=== PATIENT | male | born 1960 ===

== ENCOUNTER 2018-06-14 06:08 | Inpatient (IN) | payer MEDICARE, OTHER ==
[2018-06-14 06:56] VITALS: BMI 24.7
[2018-06-14] MEDS ORDERED: Propofol 10 mg/ml Inj (20 ML) ONE (07:37)
[2018-06-14] MEDS ORDERED: Lidocaine 4% (Laryng-O-Jet) Kit MM ONE (07:38)
[2018-06-14] MEDS ORDERED: Rocuronium 10 mg/ml (5 ml) ONE (07:38)
[2018-06-14] MEDS ORDERED: Succinylcholine Chloride 20 mg/ml Syr (5 ml) IV ONE (07:38)
[2018-06-14] MEDS ORDERED: Lidocaine 1% 5ml Abboject ONE (07:38)
[2018-06-14] MEDS ORDERED: Neostigmine 1:1000 (1 mg/ml) Inj ONE (07:38)
[2018-06-14] MEDS ORDERED: Midazolam 2 MG/2 ML VIAL ONE (07:38)
[2018-06-14 07:43] LABS: BASO % 0.7 % (0.0-2.0); EOS # 0.2 K/uL (0.0-0.7); EOS % 2.8 % (0.0-4.0); HEMOGLOBIN 14.3 g/dL (12.0-18.0); LYMPH # 2.5 K/uL (1.0-4.3); LYMPH % 38.1 % (20.0-40.0); MEAN CELL VOLUME 90.8 fl (80.0-94.0); MEAN CORPUSCULAR HEMOGLOBIN 30.9 pg (27.0-31.0); MEAN PLATELET VOLUME 9.8 fl (7.2-11.7); MONO # 0.4 K/uL (0.0-0.8); MONO % 6.9 % (0.0-10.0); NEUT # 3.3 K/uL (1.8-7.0); NEUT % 51.5 % (50.0-75.0); NRBC % 0.1 % (0.0-0.0); RBC 4.64 Mil/uL (4.40-5.90); RED CELL DISTRIBUTION WIDTH 13.6 % (11.5-14.5); WHITE BLOOD COUNT 6.4 K/uL (4.8-10.8)
[2018-06-14] MEDS ORDERED: Phenylephrine 10 mg/ml Inj ONE (07:44)
--- NOTE | 2018-06-14 08:13 | RAD ---
Date of service: 06/14/2018 HISTORY: pre-op COMPARISON: No prior. TECHNIQUE: Chest PA and lateral views FINDINGS: LUNGS: No active pulmonary disease. PLEURA: No significant pleural effusion identified. No pneumothorax apparent. CARDIOVASCULAR: No aortic atherosclerotic calcification present. Normal cardiac size. No pulmonary vascular congestion. OSSEOUS STRUCTURES: No significant abnormalities. VISUALIZED UPPER ABDOMEN: Normal. OTHER FINDINGS: None. IMPRESSION: No acute cardiopulmonary disease appreciated.
[2018-06-14] MEDS ORDERED: EPINEPHrine 1 mg/ml (1:1000) Inj ONE (09:37)
[2018-06-14] MEDS ORDERED: Sodium Chloride 0.9% 20 ML IV ONE (09:37)
[2018-06-14] MEDS ORDERED: Absorbable Gelatin Sponge Size 12-7 ONE (09:38)
[2018-06-14] MEDS ORDERED: Bupivacaine 0.5% Inj(30mL) ONE (09:38)
[2018-06-14] MEDS ORDERED: Thrombin Topical 5,000 Int Units Spray Kit ONE (09:38)
[2018-06-14] MEDS ORDERED: Vancomycin 1 g Inj ONE (10:20)
[2018-06-14] MEDS ORDERED: Sodium Chloride 0.9% 10 ML IV ONE (10:24)
[2018-06-14] MEDS ORDERED: ePHEDrine 50 mg/ml Inj ONE (10:24)
[2018-06-14] MEDS ORDERED: Morphine 1 mg/ml preservative-free Inj(Duramorph) ONE (10:27)
[2018-06-14] MEDS ORDERED: Desflurane Inhalation Anesthetic Liq (240 ml) ONE (12:59)
--- NOTE | 2018-06-14 13:48 | PCM.SURG1 ---
Surgeon's Initial Post Op Note - Surgeon's Notes Surgeon: Marie Perry MD Disc Pad Plate Filler: Star Virk PA-C; Piper Burger Type of Anesthesia: General Endo, Spinal Pre-Operative Diagnosis: Left hip OA Operative Findings: see op report Post-Operative Diagnosis: same as pre-op dx Operation Performed: L THR Specimen/Specimens Removed: left hip femoral head and soft tissue Estimated Blood Loss: EBL {In ML}: 300 Date of Surgery/Procedure: 06/14/18 Time of Surgery/Procedure: 11:30
[2018-06-14] MEDS ORDERED: DiphenhydrAMINE 50 mg/ml Inj IVP PRN (13:54)
[2018-06-14] MEDS ORDERED: HYDROmorphone 0.5 mg/0.5 ml ISec IVP PRN (16:36)
--- NOTE | 2018-06-14 17:44 | RAD ---
PROCEDURE: Left Hip X-ray Radiographs. HISTORY: s/p left total hip replacement COMPARISON: 05/10/2018. CT left hip TECHNIQUE: 2 views obtained. FINDINGS: BONES: Satisfactory position of recently placed left hip prosthesis. JOINTS: Stable osteoarthritic changes right hip. SOFT TISSUES: Expected postoperative findings in the soft tissues laterally to the left MORENITA. OTHER FINDINGS: Benítez catheter identified as an incidental finding. IMPRESSION: Satisfactory postoperative status.
[2018-06-14] MEDS: Lactated Ringer's 1,000 ML IV SCH (19:06)
[2018-06-14] MEDS: oxyCODONE 10 mg ER Tab (oxyCONTIN) PO SCH (22:12)
--- NOTE | 2018-06-14 23:20 | OP ---
PROCEDURE DATE: 06/14/2018 ATTENDING PHYSICIAN: Marie Perry MD. SIGNAL ENGINEER: Star Virk PA-C. PREOPERATIVE DIAGNOSIS: Left hip osteoarthritis. POSTOPERATIVE DIAGNOSIS: Left hip osteoarthritis. PROCEDURE: Left total hip replacement. IMPLANTS SIZE: Adrian, Trident size 56 mm cup, 10-degree liner, Adrian accolade II size 4 standard high-offset, 36 mm ceramic head with -2.5 neck length. ANESTHESIA TYPE: Spinal and general. ESTIMATED BLOOD LOSS: 200 mL. COMPLICATIONS: None. HISTORY: Patient with long standing history of left hip pain refractory of conservative management. X-ray had shown significant loss of joint space. After the failure of extensive conservative management, I had offered the patient the treatment option of total hip replacement. I reviewed the risk and benefits of the surgery with the patient in detail. The risks include, but not limited to bleeding, infection, nerve vessel damage, continuous pain, blood loss, instability, dislocation, iatrogenic fracture, blood clots, need for further surgery, and even . The patient fully understood the risks and benefits and opted to proceed. Patient underwent necessary preoperative medical workup and once medically cleared, was scheduled for the procedure. DESCRIPTION OF PROCEDURE: On the day of the surgery, the patient was admitted to preoperative holding area. A laterality sheet was completed, confirming correct operative site. An informed consent was signed from the patient and the correct operative hip was marked. Patient was brought into the operating room table. He underwent spinal anesthesia with general. Afterwards, the patient was placed on the operating room table in lateral decubitus position. All the bony prominences were well padded and an axillary roll was also placed. The hip was draped and prepped in the standard sterile manner. Timeout was completed, confirming correct operative site. We proceeded with Navigation assisted total hip replacement. Two pins were placed in the iliac crest to attach the antenna. Additional checkpoint was placed on the greater trochanter and on top of the acetabular roof. We utilized a standard postero-lateral approach. Using a #10 blade, a skin incision was made. The soft tissue dissection was taken down until the IT band fascia was identified incised along it's fibers. The short external rotators were exposed and excised with the capsule. It was tagged wit heavy sutures preserved for a later repair. Afterwards, the hip was dislocated and proposed neck cut was made. The Acetabulum was exposed using standard retractors. The remnant of torn labrum was excised along with pulvinar. The acetabulum was reamed using motorized reamers to the size that provide adequate depth and coverage. Next, size 56 cup was securely fixed in to the acetabular socket in appropriate version and inclination. A polyethylene liner was secured in to the acetabular cup. The femoral canal was exposed using standard retractors. Using the box chisel, lateral femoral neck was removed. Femoral canal was broached up to size 4 broach, which provide a secure fit and adequate fill of femoral canal. A high-offset trial neck was secured onto the broach. Different trial heads with variable neck lengths were secured onto the trial neck. The hip was reduced and taken through extensive range of motion to test stability, soft tissue tensioning and leg length. It was noted the 36 mm head with -2.5 neck length provide adequate stability, soft tissue tensioning and length. Next, size 4 stem with high-offset was securely fixed into the femoral canal. Then, a 36 mm ceramic head with -2.5 neck length was secured onto the neck of femoral stem. Hip was reduced and taken through final range of motion to assess for stability, soft tissue tensioning and leg length which was found to be satisfactory. Finally, the wound was copiously irrigated using pulse lavage solution. All loose bodies were removed. The short external rotators were repaired to greater trochanter using drill holes and heavy sutures. IT band fascia was tightly closed using heavy sutures and rest the wound was closed standard manner. Sterile dressing was applied. Patient was transferred to stretcher. Post-op instructions included posterior hip precautions. During this procedure, I was assisted by Star Virk, who assisted in positioning the patient on the operating room table as well as transferring the patient from the operating room table to the recovery room stretcher. In addition, Star Virk assisted me during the actual operative procedure by positioning, protecting critical neurovascular structures, exposure of the joint, and proper positioning of the implants. The presence of Star Virk as my operative assistant federal public defender was medically necessary to ensure the utmost safety of the patient in the pre, intra-, and post-operative periods. Marie Perry MD
[2018-06-15] MEDS: Lactated Ringer's 1,000 ML IV SCH ×3 (03:20→21:52)
[2018-06-15] MEDS: oxyCODONE 5 mg Immediate Release Tab PO PRN (03:54)
[2018-06-15 06:48] LABS: BASO % 0.3 % (0.0-2.0); EOS % 0.2 % (0.0-4.0); LYMPH # 1.9 K/uL (1.0-4.3); LYMPH % 17.9 % (20.0-40.0); MEAN CELL VOLUME 90.5 fl (80.0-94.0); MEAN CORPUSCULAR HGB CONC 34.3 g/dL (33.0-37.0); MEAN PLATELET VOLUME 9.9 fl (7.2-11.7); MONO # 0.6 K/uL (0.0-0.8); MONO % 5.5 % (0.0-10.0); NEUT % 76.1 % (50.0-75.0); NRBC % 0.1 % (0.0-0.0); RBC 3.69 Mil/uL (4.40-5.90); RED CELL DISTRIBUTION WIDTH 13.5 % (11.5-14.5); WHITE BLOOD COUNT 10.6 K/uL (4.8-10.8)
[2018-06-15 06:59] LABS: HEMOGLOBIN 11.4 g/dL (12.0-18.0)
[2018-06-15 07:09] LABS: BLOOD UREA NITROGEN 12 mg/dl (9-20); GFR NON-AFRICAN AMERICAN > 60
[2018-06-15] MEDS: oxyCODONE 10 mg ER Tab (oxyCONTIN) PO SCH ×2 (09:45→21:50)
[2018-06-15 13:29] LABS: URINE BILIRUBIN NEGATIVE (NEGATIVE); URINE BLOOD SMALL (NEGATIVE); URINE CLARITY CLEAR (Clear); URINE COLOR STRAW (YELLOW); URINE GLUCOSE (UA) 50 mg/dL (NEGATIVE); URINE LEUKOCYTE ESTERASE NEG Leu/uL (Negative); URINE PROTEIN NEGATIVE (NEGATIVE); URINE UROBILINOGEN 0.2-1.0 mg/dL (0.2-1.0)
--- NOTE | 2018-06-15 15:03 | RAD ---
Date of service: 06/15/2018 HISTORY: Fever COMPARISON: No prior. TECHNIQUE: 1 view obtained. FINDINGS: LUNGS: No active pulmonary disease. PLEURA: No significant pleural effusion identified, no pneumothorax apparent. CARDIOVASCULAR: No aortic atherosclerotic calcification present. Normal cardiac size. No pulmonary vascular congestion. OSSEOUS STRUCTURES: The glenoid fossa appear bilaterally shallow this could in part be positional. Bilateral glenohumeral joint arthrosis noted. VISUALIZED UPPER ABDOMEN: Normal. OTHER FINDINGS: None. IMPRESSION: No consolidation seen. No acute cardiopulmonary pathology appreciated. Other findings as above.
[2018-06-16] MEDS: Lactated Ringer's 1,000 ML IV SCH ×4 (02:23→21:20)
--- NOTE | 2018-06-16 02:42 | CP.PCM.HP ---
History of Present Illness - History of Present Illness History of Present Illness: CC: Left hip pain. HPI: 57 y/o male with a PMH of neuropathy and back pain presented to [facility] for a left total hip replacement with Dr. Perry. As per the pt, he was having worsening pain and neuropathy to the left hip, with associated weakness. He has tried conservative measures in the past, with no relief. PMH: Asthma, Renal Stones, Back pain, Neuropathy, Anxiety. PSH: Right knee arthroscopy. Allergies: Ciprofloxacin, Lactase, latex. Subjective Review of Systems: Reviewed and no additional remarkable complaints except pain to the left hip operative site. Objective Appears: Anxious, Non-toxic, No Acute Distress. Head Exam: NORMAL INSPECTION, normocephalic. Eye Exam: Normal eye inspection, EOMI, PERRLA. Respiratory Exam: NORMAL BREATHING PATTERN, breath sounds clear bilaterally. Cardiovascular Exam: +S1, +S2. RRR. GI & Abdominal Exam: Soft, non-tender, non-distended. Neurological Exam: Alert, Awake, Oriented x3. Psychiatric exam: Normal mood. Calm and cooperative. Musculoskeletal Exam: Pain and tenderness to the left hip postoperatively, Dressing on left hip is c/d/i. Skin Exam: Normal color, warm, dry. Assessment/Impression/Plan: 1.) Left total hip replacement -Left THR done by Dr. Perry. -ASA 325 mg BID post-operatively, as ordered by orthopedics. -Post-op fever noted; tylenol ordered. Consider empiric post-op antibiotics if fever persists. -Procalcitonin ordered. -Monitor for additional s/s infection. -Ensure adequate urine output, as pt has experienced problems voiding post-op in the past. Currently has atpia catheter in place. -PT eval and treat. -Continue current treatment. Present on Admission - Present on Admission Any Indicators Present on Admission: No Past Patient History - Past Medical History & Family History Past Medical History?: Yes - Past Social History Smoking Status: Former Smoker - CARDIAC Hx Cardiac Disorders: No - PULMONARY Hx Respiratory Disorders: Yes Hx Asthma: Yes - NEUROLOGICAL Hx Neurological Disorder: No - HEENT Hx HEENT Problems: Yes Other/Comment: TROUBLE WITH NIGHT VISION - RENAL Hx Chronic Kidney Disease: Yes Other/Comment: RECURRING KIDNEY STONES - ENDOCRINE/METABOLIC Hx Endocrine Disorders: No - HEMATOLOGICAL/ONCOLOGICAL Hx Blood Disorders: No Hx Anemia: No Hx Blood Transfusions: No - INTEGUMENTARY Hx Dermatological Problems: No - MUSCULOSKELETAL/RHEUMATOLOGICAL Hx Musculoskeletal Disorders: Yes Hx Back Pain: Yes (DUE TO LEFT HIP PAIN) Hx Degenerative Joint Disease: Yes Hx Falls: No Hx Osteoarthritis: Yes Other/Comment: TINGLING SENSATION ON THE LEFT LEG DUE TO HIP PROBLEM - GASTROINTESTINAL Hx Gastrointestinal Disorders: No - GENITOURINARY/GYNECOLOGICAL Hx Genitourinary Disorders: No - PSYCHIATRIC Hx Emotional Abuse: No Hx Physical Abuse: No - SURGICAL HISTORY Hx Surgeries: Yes Other/Comment: RIGHT KNEE ARTHROSCOPY-1994 - ANESTHESIA Hx Anesthesia: Yes Hx Anesthesia Reactions: No Hx Malignant Hyperthermia: No Has any member of the family had a problem w/ anesthesia?: No Meds Allergies/Adverse Reactions: Allergies Allergy/AdvReac Type Severity Reaction Status Date / Time ciprofloxacin [From Cipro] Allergy RASH Verified 05/27/18 15:53 lactase [From Dairy Aid] Allergy DIARRHEA Verified 05/27/18 15:54 latex Allergy RASH Verified 05/27/18 15:53 Results - Vital Signs Recent Vital Signs: Last Vital Signs Temp 98.7 F 06/15/18 23:52 Pulse 98 H 06/15/18 23:52 Resp 18 06/15/18 23:52 BP 110/71 06/15/18 23:52 Pulse Ox 98 06/15/18 23:52 - Labs Result Diagrams: 06/15/18 05:30 06/15/18 05:30 Labs: Laboratory Results - last 24 hr 06/15/18 06/15/18 06/15/18 05:30 05:30 13:07 WBC 10.6 D RBC 3.69 L Hgb 11.4 L D Hct 33.4 L MCV 90.5 MCH 31.0 MCHC 34.3 RDW 13.5 Plt Count 174 MPV 9.9 Neut % (Auto) 76.1 H Lymph % (Auto) 17.9 L [place] % (Auto) 5.5 Eos % (Auto) 0.2 Baso % (Auto) 0.3 Neut # (Auto) 8.0 H Lymph # (Auto) 1.9 [place] # (Auto) 0.6 Eos # (Auto) 0.0 Baso # (Auto) 0.0 Sodium 133 Potassium 4.0 Chloride 101 Carbon Dioxide 24 Anion Gap 12 BUN 12 Creatinine 0.8 Est GFR ( Amer) > 60 Est GFR (Non-Af Amer) > 60 Random Glucose 110 Calcium 9.0 Urine Color Straw Urine Clarity Clear Urine pH 7.0 Ur Specific [place] < 1.005 Urine Protein Negative Urine Glucose (UA) 50 Urine Ketones Negative Urine Blood Small Urine Nitrate Negative Urine Bilirubin Negative Urine Urobilinogen 0.2-1.0 Ur Leukocyte Esterase Neg Urine RBC (Auto) 1 Urine Microscopic WBC 2 Assessment & Plan (1) Status post total hip replacement, left Status: Acute
[2018-06-16 06:02] LABS: BASO % 0.4 % (0.0-2.0); EOS % 0.2 % (0.0-4.0); LYMPH # 1.3 K/uL (1.0-4.3); LYMPH % 14.4 % (20.0-40.0); MEAN CELL VOLUME 90.8 fl (80.0-94.0); MEAN CORPUSCULAR HEMOGLOBIN 30.5 pg (27.0-31.0); MEAN CORPUSCULAR HGB CONC 33.6 g/dL (33.0-37.0); MEAN PLATELET VOLUME 9.7 fl (7.2-11.7); MONO # 0.6 K/uL (0.0-0.8); MONO % 6.6 % (0.0-10.0); NEUT # 6.8 K/uL (1.8-7.0); NEUT % 78.4 % (50.0-75.0); RBC 2.96 Mil/uL (4.40-5.90); RED CELL DISTRIBUTION WIDTH 13.4 % (11.5-14.5); WHITE BLOOD COUNT 8.7 K/uL (4.8-10.8)
[2018-06-16 06:24] LABS: BLOOD UREA NITROGEN 8 mg/dl (9-20); CALCIUM 8.7 mg/dL (8.4-10.2); GFR NON-AFRICAN AMERICAN > 60
[2018-06-16] MEDS: oxyCODONE 10 mg ER Tab (oxyCONTIN) PO SCH ×2 (08:26→21:15)
--- NOTE | 2018-06-16 11:13 | CP.PCM.PN ---
Subjective - Date & Time of Evaluation Date of Evaluation: 06/16/18 Time of Evaluation: 11:11 - Subjective Subjective: Patient seen and examined at bedside comfortable. Pain well controlled. No acute events overnight. Tolerating PT well. Denies CP/SOB/fever/dizziness. Objective - Vital Signs/Intake and Output Vital Signs (last 24 hours): Temp Pulse Resp BP Pulse Ox 98.7 F 99 H 20 100/56 L 96 06/16/18 08:20 06/16/18 07:37 06/16/18 07:37 06/16/18 07:37 06/16/18 07:37 Intake and Output: 06/16/18 06/16/18 06:59 18:59 Intake Total 1440 Balance 1440 - Medications Medications: Current Medications Acetaminophen (Tylenol 325mg Tab) 325 mg PO Q4 PRN PRN Reason: pain1-3or fever Aspirin (Aspirin) 325 mg PO BID [facility] Last Admin: 06/16/18 08:26 Dose: 325 mg Celecoxib (Celebrex) 100 mg PO Q12 [facility] Last Admin: 06/16/18 08:22 Dose: 100 mg Diphenhydramine HCl (Benadryl) 50 mg IVP Q6 PRN PRN Reason: Itching / Pruritus Docusate Sodium (Colace) 100 mg PO TID [facility] Last Admin: 06/16/18 08:21 Dose: 100 mg Famotidine (Pepcid) 20 mg PO BID [facility] Last Admin: 06/16/18 08:21 Dose: 20 mg Lactated Ringer's (Lactated Ringer's) 1,000 mls @ 100 mls/hr IV .Q10H [facility] Last Admin: 06/16/18 08:21 Dose: 100 mls/hr Ondansetron HCl (Zofran Inj) 4 mg IVP Q6 PRN PRN Reason: Nausea/Vomiting Last Admin: 06/14/18 16:00 Dose: 4 mg Oxycodone HCl (Oxycodone Immediate Release Tab) 5 mg PO Q4 PRN PRN Reason: pain4-7 Last Admin: 06/15/18 03:54 Dose: 5 mg Oxycodone HCl (Oxycontin Extended Release Tab) 10 mg PO Q12 [facility] Stop: 06/28/18 21:01 Last Admin: 06/16/18 08:26 Dose: 10 mg Temazepam (Restoril) 30 mg PO HS [facility] Last Admin: 06/15/18 21:51 Dose: 30 mg Tramadol HCl (Ultram) 50 mg PO Q4 PRN PRN Reason: pain8-10 - Labs Labs: 06/16/18 05:55 06/16/18 05:55 - Extremities Exam Additional comments: L hip: Dressings CDI mild swelling Incision CDI with boubacar sensation intact SP/DP/TN motor intact EHL/FHL/TA/G pedal pulse intact calves soft NT Assessment and Plan (1) Status post total hip replacement, left Assessment & Plan: POD#2 s/p L MORENITA -posterior hip precautions -hip abd pillow -dressings changed -PT/OT -DVT ppx -orthopedically stable -d/c planning -d/w Dr. Perry who agrees with above Status: Acute
[2018-06-17] MEDS: Lactated Ringer's 1,000 ML IV SCH (06:08)
[2018-06-17 06:11] LABS: BASO % 0.3 % (0.0-2.0); EOS # 0.1 K/uL (0.0-0.7); EOS % 1.7 % (0.0-4.0); HEMOGLOBIN 8.7 g/dL (12.0-18.0); LYMPH # 1.8 K/uL (1.0-4.3); LYMPH % 22.2 % (20.0-40.0); MEAN CORPUSCULAR HEMOGLOBIN 30.7 pg (27.0-31.0); MEAN CORPUSCULAR HGB CONC 33.3 g/dL (33.0-37.0); MEAN PLATELET VOLUME 9.6 fl (7.2-11.7); MONO # 0.7 K/uL (0.0-0.8); MONO % 8.1 % (0.0-10.0); NEUT # 5.6 K/uL (1.8-7.0); NEUT % 67.7 % (50.0-75.0); RBC 2.82 Mil/uL (4.40-5.90); WHITE BLOOD COUNT 8.3 K/uL (4.8-10.8)
[2018-06-17] MEDS: oxyCODONE 5 mg Immediate Release Tab PO PRN (06:23)
[2018-06-17 06:39] LABS: BLOOD UREA NITROGEN 10 mg/dl (9-20); CALCIUM 8.6 mg/dL (8.4-10.2); GFR NON-AFRICAN AMERICAN > 60
[2018-06-17 07:39] VITALS: BP 98/62; PULSE 84; RESP 20; TEMP 98.5; O2SAT 97
--- NOTE | 2018-06-17 08:34 | CP.PCM.PN ---
Subjective - Date & Time of Evaluation Date of Evaluation: 06/17/18 Time of Evaluation: 08:32 - Subjective Subjective: Patient states he has a lot of pain in hip and gluteal area. Denies CP/SOb/dizziness. Denies numbness/tingling. Denies nv. Still with some burningn with urination, patient advised u/a was negative and likely from tapia and should improve Objective - Vital Signs/Intake and Output Vital Signs (last 24 hours): Temp Pulse Resp BP Pulse Ox 98.5 F 84 20 98/62 L 97 06/17/18 07:39 06/17/18 07:39 06/17/18 07:39 06/17/18 07:39 06/17/18 07:39 Intake and Output: 06/17/18 06/17/18 06:59 18:59 Intake Total 740 Balance 740 - Medications Medications: Current Medications Acetaminophen (Tylenol 325mg Tab) 325 mg PO Q4 PRN PRN Reason: pain1-3or fever Aspirin (Aspirin) 325 mg PO BID [facility] Last Admin: 06/16/18 16:09 Dose: 325 mg Celecoxib (Celebrex) 100 mg PO Q12 [facility] Last Admin: 06/16/18 21:16 Dose: Not Given Diphenhydramine HCl (Benadryl) 50 mg IVP Q6 PRN PRN Reason: Itching / Pruritus Docusate Sodium (Colace) 100 mg PO TID [facility] Last Admin: 06/16/18 16:06 Dose: 100 mg Famotidine (Pepcid) 20 mg PO BID [facility] Last Admin: 06/16/18 16:06 Dose: 20 mg Lactated Ringer's (Lactated Ringer's) 1,000 mls @ 100 mls/hr IV .Q10H [facility] Last Admin: 06/17/18 06:08 Dose: Not Given Ondansetron HCl (Zofran Inj) 4 mg IVP Q6 PRN PRN Reason: Nausea/Vomiting Last Admin: 06/14/18 16:00 Dose: 4 mg Oxycodone HCl (Oxycodone Immediate Release Tab) 5 mg PO Q4 PRN PRN Reason: pain4-7 Last Admin: 06/17/18 06:23 Dose: 5 mg Oxycodone HCl (Oxycontin Extended Release Tab) 10 mg PO Q12 [facility] Stop: 06/28/18 21:01 Last Admin: 06/16/18 21:15 Dose: 10 mg Temazepam (Restoril) 30 mg PO HS [facility] Last Admin: 06/16/18 21:16 Dose: 30 mg Tramadol HCl (Ultram) 50 mg PO Q4 PRN PRN Reason: pain8-10 - Labs Labs: 06/17/18 05:20 06/17/18 05:20 - Extremities Exam Additional comments: Left hip: dressing changed. Incision intact, mod sang drainage, no erythema. Thigh soft. +ROM ankle/toes, sensation intact +DP/PT pulses calves soft NT neg homans Assessment and Plan (1) Primary osteoarthritis of left hip Assessment & Plan: POD#3 s/p left total hip replacement PT/OT VTE proph encourage OOB for transfer to TCU today ortho stable d/w Dr. Perry, agrees with above Status: Acute (2) Acute blood loss anemia Assessment & Plan: monitor Status: Acute
[2018-06-17] MEDS: oxyCODONE 10 mg ER Tab (oxyCONTIN) PO SCH (08:36)
--- NOTE | 2018-06-17 13:29 | CP.PCM.PN ---
Subjective - Date & Time of Evaluation Date of Evaluation: 06/16/18 Time of Evaluation: 11:00 - Subjective Subjective: patient seen and examined at bedside. Interim events noted No complaints offered at this time besides burning on urination, UA negative pain controlled denies cp/sob/fever/chills. available diagnostic data reviewed Review of Systems All systems: reviewed and no additional remarkable complaints except mentioned above Objective Vital Signs Stable - Constitutional Appears: Non-toxic, No Acute Distress Head Exam: NORMAL INSPECTION Eye Exam: Normal appearance Respiratory Exam: NORMAL BREATHING PATTERN Cardiovascular Exam: +S1, +S2 GI & Abdominal Exam: Soft Neurological Exam: Alert, Awake Psychiatric exam: Normal Affect, Normal Mood Skin Exam: Normal Color, Warm Assessment and Plan monitor vitals monitor labs Cont meds Cont tx consultants appreciated input dispo planning rest of plan as ordered Objective - Vital Signs/Intake and Output Vital Signs (last 24 hours): Temp Pulse Resp BP Pulse Ox 98.5 F 84 20 98/62 L 97 06/17/18 07:39 06/17/18 07:39 06/17/18 07:39 06/17/18 07:39 06/17/18 07:39 Intake and Output: 06/17/18 06/17/18 06:59 18:59 Intake Total 740 Balance 740 - Medications Medications: Current Medications Acetaminophen (Tylenol 325mg Tab) 325 mg PO Q4 PRN PRN Reason: pain1-3or fever Aspirin (Aspirin) 325 mg PO BID [facility] Last Admin: 06/17/18 08:37 Dose: 325 mg Celecoxib (Celebrex) 100 mg PO Q12 [facility] Last Admin: 06/17/18 08:37 Dose: 100 mg Diphenhydramine HCl (Benadryl) 50 mg IVP Q6 PRN PRN Reason: Itching / Pruritus Docusate Sodium (Colace) 100 mg PO TID [facility] Last Admin: 06/17/18 08:36 Dose: 100 mg Famotidine (Pepcid) 20 mg PO BID [facility] Last Admin: 06/17/18 08:37 Dose: 20 mg Lactated Ringer's (Lactated Ringer's) 1,000 mls @ 100 mls/hr IV .Q10H [facility] Last Admin: 06/17/18 06:08 Dose: Not Given Ondansetron HCl (Zofran Inj) 4 mg IVP Q6 PRN PRN Reason: Nausea/Vomiting Last Admin: 06/14/18 16:00 Dose: 4 mg Oxycodone HCl (Oxycodone Immediate Release Tab) 5 mg PO Q4 PRN PRN Reason: pain4-7 Last Admin: 06/17/18 06:23 Dose: 5 mg Oxycodone HCl (Oxycontin Extended Release Tab) 10 mg PO Q12 [facility] Stop: 06/28/18 21:01 Last Admin: 06/17/18 08:36 Dose: 10 mg Phenazopyridine HCl (Pyridium) 100 mg PO TID [facility] Stop: 06/18/18 23:00 Last Admin: 06/17/18 12:19 Dose: 100 mg Temazepam (Restoril) 30 mg PO HS [facility] Last Admin: 06/16/18 21:16 Dose: 30 mg Tramadol HCl (Ultram) 50 mg PO Q4 PRN PRN Reason: pain8-10 - Labs Labs: 06/17/18 05:20 06/17/18 05:20 Assessment and Plan (1) Status post total hip replacement, left Status: Acute
--- NOTE | 2018-06-17 13:31 | CP.PCM.DIS ---
Provider - Provider Date of Admission: 06/14/18 13:48 Attending physician: Christiano Payne MD Primary care physician: Homar Albert MD Consults: 06/16/18 11:03 Orthopedic Consult Routine Comment: Consulting Provider: Marie Perry Consulting Physician: Marie Perry Reason for Consult: postop ortho mgmt Time Spent in preparation of Discharge (in minutes): 30 Diagnosis - Discharge Diagnosis (1) Status post total hip replacement, left Status: Acute Hospital Course - Lab Results Lab Results: Micro Results 06/15/18 10:20 Blood Blood Culture - Preliminary NO GROWTH AFTER 48 HOURS 06/15/18 13:07 Urine,Benítez Urine Culture - Final No Growth (<1,000 CFU/ML) Most Recent Lab Values WBC 8.3 K/uL (4.8-10.8) 06/17/18 05:20 RBC 2.82 Mil/uL (4.40-5.90) L 06/17/18 05:20 Hgb 8.7 g/dL (12.0-18.0) L 06/17/18 05:20 Hct 26.0 % (35.0-51.0) L 06/17/18 05:20 MCV 92.0 fl (80.0-94.0) 06/17/18 05:20 MCH 30.7 pg (27.0-31.0) 06/17/18 05:20 MCHC 33.3 g/dL (33.0-37.0) 06/17/18 05:20 RDW 14.0 % (11.5-14.5) 06/17/18 05:20 Plt Count 133 K/uL (130-400) 06/17/18 05:20 MPV 9.6 fl (7.2-11.7) 06/17/18 05:20 Neut % (Auto) 67.7 % (50.0-75.0) 06/17/18 05:20 Lymph % (Auto) 22.2 % (20.0-40.0) 06/17/18 05:20 [place] % (Auto) 8.1 % (0.0-10.0) 06/17/18 05:20 Eos % (Auto) 1.7 % (0.0-4.0) 06/17/18 05:20 Baso % (Auto) 0.3 % (0.0-2.0) 06/17/18 05:20 Neut # (Auto) 5.6 K/uL (1.8-7.0) 06/17/18 05:20 Lymph # (Auto) 1.8 K/uL (1.0-4.3) 06/17/18 05:20 [place] # (Auto) 0.7 K/uL (0.0-0.8) 06/17/18 05:20 Eos # (Auto) 0.1 K/uL (0.0-0.7) 06/17/18 05:20 Baso # (Auto) 0.0 K/uL (0.0-0.2) 06/17/18 05:20 Sodium 139 mmol/l (132-148) 06/17/18 05:20 Potassium 3.8 MMOL/L (3.6-5.0) 06/17/18 05:20 Chloride 105 mmol/L (98-107) 06/17/18 05:20 Carbon Dioxide 28 mmol/L (22-30) 06/17/18 05:20 Anion Gap 10 (10-20) 06/17/18 05:20 BUN 10 mg/dl (9-20) 06/17/18 05:20 Creatinine 0.7 mg/dl (0.8-1.5) L 06/17/18 05:20 Est GFR ( Amer) > 60 06/17/18 05:20 Est GFR (Non-Af Amer) > 60 06/17/18 05:20 Random Glucose 100 mg/dL (75-110) 06/17/18 05:20 Calcium 8.6 mg/dL (8.4-10.2) 06/17/18 05:20 Procalcitonin 0.38 NG/ML (0.19-0.49) 06/16/18 05:55 Urine Color Straw (YELLOW) 06/15/18 13:07 Urine Clarity Clear (Clear) 06/15/18 13:07 Urine pH 7.0 (5.0-8.0) 06/15/18 13:07 Ur Specific [place] < 1.005 (1.003-1.030) 06/15/18 13:07 Urine Protein Negative mg/dL (NEGATIVE) 06/15/18 13:07 Urine Glucose (UA) 50 mg/dL (NEGATIVE) 06/15/18 13:07 Urine Ketones Negative mg/dL (NEGATIVE) 06/15/18 13:07 Urine Blood Small (NEGATIVE) 06/15/18 13:07 Urine Nitrate Negative (NEGATIVE) 06/15/18 13:07 Urine Bilirubin Negative (NEGATIVE) 06/15/18 13:07 Urine Urobilinogen 0.2-1.0 mg/dL (0.2-1.0) 06/15/18 13:07 Ur Leukocyte Esterase Neg [place]/uL (Negative) 06/15/18 13:07 Urine RBC (Auto) 1 /hpf (0-3) 06/15/18 13:07 Urine Microscopic WBC 2 /hpf (0-5) 06/15/18 13:07 Blood Type O POSITIVE 06/14/18 07:00 Blood Type Confirm O POSITIVE 06/14/18 08:00 Antibody Screen Negative 06/14/18 07:00 Crossmatch See Detail 06/14/18 07:00 BBK History Checked No verified bt 06/14/18 07:00 - Hospital Course Hospital Course: 57 y/o male with a PMH of neuropathy and back pain presented to [facility] for a left total hip replacement with Dr. Perry. As per the pt, he was having worsening pain and neuropathy to the left hip, with associated weakness. He has tried conservative measures in the past, with no relief. Patient had post op fever though with negative procalcitonin and asymptomatic. Patient fever improved. Pain well controlled. Patient to be discharged to TCU for further rehabilitation. Discharge Exam - Head Exam Head Exam: NORMAL INSPECTION - Eye Exam Eye Exam: Normal appearance - Respiratory Exam Respiratory Exam: NORMAL BREATHING PATTERN - Cardiovascular Exam Cardiovascular Exam: +S1, +S2 - Neurological Exam Neurological exam: Alert - Psychiatric Exam Psychiatric exam: Normal Affect, Normal Mood - Skin Skin Exam: Normal Color, Warm Discharge Plan - Follow Up Plan Condition: GOOD Disposition: REHAB FACILITY/REHAB UNIT Instructions: Total Hip Replacement, How to Wash Your Hands Properly Referrals: Homar Albert MD [Primary Care Provider] -
--- NOTE | 2018-06-18 00:23 | PQF ---
PROVIDER RESPONSE TEXT: Diagnosis: Urinary retention. Due to this diagnosis, the insertion of a tapia catheter was required p ost-operatively. REVIEWER QUERY TEXT: Clarification of Clinical Diagnostic Findings Physician?s Documentation Request This Form is Not a Permanent Document in the Medical Record Pt Name: BAILEY HARRIS MR #: [id number] Payor: MEDICARE PART A [id number] Adm Date: 06/14/2018 1:48:00 PM Reviewer: Guadalupe Cotto Ext. Query Date: Clarification of Clinical Diagnostic Findings [id number] By submitting this query, we are merely seeking further clarification of documentation to accurately reflect all conditions that you are monitoring, evaluating, treating or that extend the hospitalizati on or utilize additional resources of care. Please utilize your independent clinical judgment when ad dressing the question(s) below. Dear Doctor Tomas Garnica, The patient?s Clinical Indicators include: -- Please clarify if there is an associated diagnosis related to the insertion of the tapia catheter pos t-op Or: Disagree Or: Other explanation of clinical finding H and P includes: -Ensure adequate urine output, as pt has experienced problems voiding post-op in th e past.Currently has tapia catheter in place 06/15 Nurses note; 0400 patient noted with slightly distended bladder, bladder scan done have 415cc.-- order for catheter insertion. 0430 catheter inserted as ordered. Drained 500 cc jeremy colored urine, patient verbalized slightly re lieved. PLEASE DOCUMENT ANY ADDITIONAL DIAGNOSES AND/OR SPECIFICITY IN THE PROGRESS NOTES AND/OR DISCHARGE MCKEE MMARY. Clinically unable to determine/unknown Disagree with the above request Need to discuss Query created by: Guadalupe Cotto on 06/16/2018 1:29 PM Electronically signed by: Tomas Garnica APN 06/18/2018 12:19 AM
--- NOTE | 2018-06-18 00:23 | PQF ---
PROVIDER RESPONSE TEXT: The drop in hemoglobin and hematocrit is possibly secondary to blood loss during the total hip replac ement, although it is difficult to determine with certainty. Post-operative note states 300 ml blood loss. DX: Acute posthemorrhagic anemia. REVIEWER QUERY TEXT: Clarification of Clinical Diagnostic Findings Physician?s Documentation Request This Form is Not a Permanent Document in the Medical Record Pt Name: BAILEY HARRIS MR #: [id number] Payor: MEDICARE PART A [id number] Adm Date: 06/14/2018 1:48:00 PM Reviewer: Guadalupe Cotto Ext. Query Date: 06/16/2018 1:18:05 PM Clarification of Clinical Diagnostic Findings [id number] By submitting this query, we are merely seeking further clarification of documentation to accurately reflect all conditions that you are monitoring, evaluating, treating or that extend the hospitalizati on or utilize additional resources of care. Please utilize your independent clinical judgment when ad dressing the question(s) below. Dear Doctor Tomas Garnica, The patient?s Clinical Indicators include: --- Is there an associated diagnoses to go along with the shift in H/H: H/H: 14.3/42.1->11.4/33.4-> 9.0/2 6.8. 4/16: Op note: Lt. THR -Or: Disagree -Or: Other explanation of clinical finding PLEASE DOCUMENT ANY ADDITIONAL DIAGNOSES AND/OR SPECIFICITY IN THE PROGRESS NOTES AND/OR DISCHARGE MCKEE MMARY. Clinically unable to determine/unknown Disagree with the above request Need to discuss Query created by: Guadalupe Cotto on 06/16/2018 1:18 PM Electronically signed by: Tomas Garnica APN 06/18/2018 12:19 AM
== END 2018-06-17 14:01 | DRG 470 ==
LOC: H.OPSURG 06:08 → H.MEDSURG1 13:48
PROVIDERS: ADMIT Family Medicine; ATTEND Family Medicine
PROC: 0SRB04Z Replacement of Left Hip Joint with Ceramic on Polyethylene Synthetic Substitute, Open Approach (ICD-10-PCS; principal; 2018-06-14 09:30)
DX: M16.12 Unilateral primary osteoarthritis, left hip (principal); D62 Acute posthemorrhagic anemia; R50.82 Postprocedural fever; J45.909 Unspecified asthma, uncomplicated; N18.9 Chronic kidney disease, unspecified; Z87.442 Personal history of urinary calculi; Z87.891 Personal history of nicotine dependence; F41.9 Anxiety disorder, unspecified; G62.9 Polyneuropathy, unspecified; M19.90 Unspecified osteoarthritis, unspecified site; M54.9 Dorsalgia, unspecified; R33.8 Other retention of urine; N99.89 Other postprocedural complications and disorders of genitourinary system

== ENCOUNTER 2018-06-17 11:43 | Inpatient (IN) | payer OTHER ==
[2018-06-17] MEDS ORDERED: oxyCODONE 5 mg Immediate Release Tab PO PRN ×2 (13:57→14:14)
[2018-06-17] MEDS ORDERED: DiphenhydrAMINE 50 mg/ml Inj IVP PRN (14:13)
--- NOTE | 2018-06-17 16:09 | PCM.CPAPS ---
History of Present Illness - History of Present Illness History of Present Illness: 57 year old male admitted to TCU with diagnosis of L THR, with history of neuropathy,asthma, renal stones, back pain Review of Systems - Musculoskeletal Musculoskeletal: Abnormal Gait, Limited Range of Motion, Muscle Weakness Past Patient History - Past Medical History & Family History Past Medical History?: Yes - Past Social History Smoking Status: Former Smoker - CARDIAC Hx Cardiac Disorders: No - PULMONARY Hx Respiratory Disorders: Yes Hx Asthma: Yes - NEUROLOGICAL Hx Neurological Disorder: No - HEENT Hx HEENT Problems: Yes Other/Comment: TROUBLE WITH NIGHT VISION - RENAL Hx Chronic Kidney Disease: Yes Other/Comment: RECURRING KIDNEY STONES - ENDOCRINE/METABOLIC Hx Endocrine Disorders: No - HEMATOLOGICAL/ONCOLOGICAL Hx Blood Disorders: No Hx Anemia: No Hx Blood Transfusions: No - INTEGUMENTARY Hx Dermatological Problems: No - MUSCULOSKELETAL/RHEUMATOLOGICAL Hx Musculoskeletal Disorders: Yes Hx Back Pain: Yes (DUE TO LEFT HIP PAIN) Hx Degenerative Joint Disease: Yes Hx Falls: No Hx Osteoarthritis: Yes Other/Comment: TINGLING SENSATION ON THE LEFT LEG DUE TO HIP PROBLEM - GASTROINTESTINAL Hx Gastrointestinal Disorders: No - GENITOURINARY/GYNECOLOGICAL Hx Genitourinary Disorders: No - PSYCHIATRIC Hx Emotional Abuse: No Hx Physical Abuse: No - SURGICAL HISTORY Hx Surgeries: Yes Other/Comment: RIGHT KNEE ARTHROSCOPY-1994 - ANESTHESIA Hx Anesthesia: Yes Hx Anesthesia Reactions: No Hx Malignant Hyperthermia: No Meds Allergies/Adverse Reactions: Allergies Allergy/AdvReac Type Severity Reaction Status Date / Time ciprofloxacin [From Cipro] Allergy RASH Verified 06/17/18 13:35 lactase [From Dairy Aid] Allergy DIARRHEA Verified 06/17/18 13:35 latex Allergy RASH Verified 06/17/18 13:35 - Medications Medications: Current Medications Acetaminophen (Tylenol 325mg Tab) 650 mg PO Q4 PRN PRN Reason: Fever >100.4 F Acetaminophen (Tylenol 325mg Tab) 650 mg PO Q4 PRN PRN Reason: Pain, Mild (1-3) Aspirin (Aspirin) 325 mg PO BID [facility] Celecoxib (Celebrex) 100 mg PO Q12 [facility] Diphenhydramine HCl (Benadryl) 50 mg IVP Q6 PRN PRN Reason: Itching / Pruritus Docusate Sodium (Colace) 100 mg PO TID [facility] Famotidine (Pepcid) 20 mg PO BID [facility] Ondansetron HCl (Zofran Inj) 4 mg IVP Q6 PRN PRN Reason: Nausea/Vomiting Oxycodone HCl (Oxycontin Extended Release Tab) 10 mg PO Q12 [facility] Stop: 06/20/18 21:01 Oxycodone HCl (Oxycodone Immediate Release Tab) 5 mg PO Q4 PRN PRN Reason: Pain, severe (8-10) Phenazopyridine HCl (Pyridium) 100 mg PO TID [facility] Stop: 06/18/18 23:59 Temazepam (Restoril) 30 mg PO HS [facility] Tramadol HCl (Ultram) 50 mg PO Q4 PRN PRN Reason: Pain, moderate (4-7) Physical Exam - Constitutional Appears: Well - Head Exam Head Exam: ATRAUMATIC, NORMAL INSPECTION - Eye Exam Eye Exam: EOMI, Normal appearance, PERRL Pupil Exam: NORMAL ACCOMODATION - ENT Exam ENT Exam: Mucous Membranes Moist, Normal Exam - Neck Exam Neck exam: Positive for: Normal Inspection - Respiratory Exam Respiratory Exam: Clear to Auscultation Bilateral, NORMAL BREATHING PATTERN - Cardiovascular Exam Cardiovascular Exam: REGULAR RHYTHM - GI/Abdominal Exam GI & Abdominal Exam: Normal Bowel Sounds - Rectal Exam Rectal Exam: NORMAL INSPECTION - Exam External exam: NORMAL EXTERNAL EXAM - Extremities Exam Additional comments: left leg weakness muscle strength for 3/5 - Back Exam Back exam: NORMAL INSPECTION - Neurological Exam Neurological exam: Alert, CN II-XII Intact - Psychiatric Exam Psychiatric exam: Normal Affect, Normal Mood - Skin Skin Exam: Dry Assessment & Plan (1) Primary osteoarthritis of left hip Assessment and Plan: plan for physical, occupational therapy monitor skin and pain Status: Acute (2) Status post total hip replacement, left Status: Acute - Functional Status Prior to Admission: tish was independent Current Status: tish needs asistance in adls, transfers and gait Impairment Code: left hip replacement
[2018-06-17 19:17] LABS: SQUAMOUS EPITHIAL < 1 /hpf (0-5); URINE BACTERIA RARE (<OCC); URINE BILIRUBIN NEGATIVE (NEGATIVE); URINE BLOOD NEGATIVE (NEGATIVE); URINE CLARITY CLEAR (Clear); URINE COLOR AMBER (YELLOW); URINE GLUCOSE (UA) 150 mg/dL (NEGATIVE); URINE LEUKOCYTE ESTERASE NEG Leu/uL (Negative); URINE PROTEIN 30 mg/dL (NEGATIVE)
[2018-06-17] MEDS: oxyCODONE 10 mg ER Tab (oxyCONTIN) PO SCH (20:47)
[2018-06-18 05:48] LABS: HEMOGLOBIN 9.4 g/dL (12.0-18.0); MEAN CELL VOLUME 90.9 fl (80.0-94.0); MEAN CORPUSCULAR HEMOGLOBIN 30.7 pg (27.0-31.0); MEAN CORPUSCULAR HGB CONC 33.8 g/dL (33.0-37.0); RBC 3.05 Mil/uL (4.40-5.90); RED CELL DISTRIBUTION WIDTH 13.7 % (11.5-14.5); WHITE BLOOD COUNT 7.4 K/uL (4.8-10.8)
[2018-06-18 05:54] LABS: INR 1.1; PROTHROMBIN TIME 12.7 Seconds (9.8-13.1)
[2018-06-18 06:04] LABS: ALB/GLOB RATIO 1.2 (1.0-2.1); ALBUMIN 3.6 g/dL (3.5-5.0); ALT/SGPT 23 U/L (21-72); AST/SGOT 35 U/L (17-59); BLOOD UREA NITROGEN 11 mg/dl (9-20); GFR NON-AFRICAN AMERICAN > 60; PARTIAL THROMBOPLASTIN TIME 32.5 Seconds (25.6-37.1)
[2018-06-18] MEDS: oxyCODONE 10 mg ER Tab (oxyCONTIN) PO SCH ×2 (09:27→21:31)
--- NOTE | 2018-06-18 11:56 | CP.PCM.HP ---
History of Present Illness - History of Present Illness History of Present Illness: 57 y/o male with a PMH of neuropathy and back pain admitted to [facility] recently due to s/p left total hip replacement with Dr. Perry. Patient now admitted to TCU for further rehabilitation. Patient states dysuria has improved though still present at times. no other symptoms reported. no abdominal pain, fever, chills, or back pain. doing well with therapy. urine culture in past as been negative. no hematuria. meds: as per chart allergies: as per chart fam hx: non contributory Present on Admission - Present on Admission Any Indicators Present on Admission: No Review of Systems - Review of Systems All systems: reviewed and no additional remarkable complaints except (mentioned above) Past Patient History - Past Medical History & Family History Past Medical History?: Yes - Past Social History Smoking Status: Former Smoker - CARDIAC Hx Cardiac Disorders: No - PULMONARY Hx Respiratory Disorders: Yes Hx Asthma: Yes - NEUROLOGICAL Hx Neurological Disorder: No - HEENT Hx HEENT Problems: Yes Other/Comment: TROUBLE WITH NIGHT VISION - RENAL Hx Chronic Kidney Disease: Yes Other/Comment: RECURRING KIDNEY STONES - ENDOCRINE/METABOLIC Hx Endocrine Disorders: No - HEMATOLOGICAL/ONCOLOGICAL Hx Blood Disorders: No Hx Anemia: No Hx Blood Transfusions: No - INTEGUMENTARY Hx Dermatological Problems: No - MUSCULOSKELETAL/RHEUMATOLOGICAL Hx Musculoskeletal Disorders: Yes Hx Back Pain: Yes (DUE TO LEFT HIP PAIN) Hx Degenerative Joint Disease: Yes Hx Falls: No Hx Osteoarthritis: Yes Other/Comment: TINGLING SENSATION ON THE LEFT LEG DUE TO HIP PROBLEM - GASTROINTESTINAL Hx Gastrointestinal Disorders: No - GENITOURINARY/GYNECOLOGICAL Hx Genitourinary Disorders: No - PSYCHIATRIC Hx Emotional Abuse: No Hx Physical Abuse: No - SURGICAL HISTORY Hx Surgeries: Yes Other/Comment: RIGHT KNEE ARTHROSCOPY-1995 - ANESTHESIA Hx Anesthesia: Yes Hx Anesthesia Reactions: No Hx Malignant Hyperthermia: No Meds Allergies/Adverse Reactions: Allergies Allergy/AdvReac Type Severity Reaction Status Date / Time ciprofloxacin [From Cipro] Allergy RASH Verified 06/17/18 13:35 lactase [From Dairy Aid] Allergy DIARRHEA Verified 06/17/18 13:35 latex Allergy RASH Verified 06/17/18 13:35 Physical Exam - Constitutional Appears: Non-toxic, No Acute Distress - Head Exam Head Exam: NORMAL INSPECTION - Eye Exam Eye Exam: Normal appearance - Neck Exam Neck exam: Positive for: Normal Inspection - Respiratory Exam Respiratory Exam: NORMAL BREATHING PATTERN - Cardiovascular Exam Cardiovascular Exam: +S1, +S2 - GI/Abdominal Exam GI & Abdominal Exam: Normal Bowel Sounds, Soft - Neurological Exam Neurological exam: Alert, Oriented x3 - Psychiatric Exam Psychiatric exam: Normal Affect, Normal Mood - Skin Skin Exam: Normal Color, Warm Results - Vital Signs Recent Vital Signs: Last Vital Signs Temp 98.7 F 06/18/18 08:25 Pulse 80 06/18/18 08:25 Resp 20 06/18/18 08:25 BP 107/63 06/18/18 08:25 Pulse Ox 97 06/18/18 08:25 - Labs Result Diagrams: 06/18/18 05:30 06/18/18 05:30 Labs: Laboratory Results - last 24 hr 06/17/18 06/18/18 06/18/18 18:59 05:30 05:30 WBC 7.4 RBC 3.05 L Hgb 9.4 L Hct 27.7 L MCV 90.9 MCH 30.7 MCHC 33.8 RDW 13.7 Plt Count 185 PT 12.7 INR 1.1 APTT 32.5 Sodium Potassium Chloride Carbon Dioxide Anion Gap BUN Creatinine Est GFR ( Amer) Est GFR (Non-Af Amer) Random Glucose Calcium Total Bilirubin AST ALT Alkaline Phosphatase Total Protein Albumin Globulin Albumin/Globulin Ratio Urine Color Doreen Urine Clarity Clear Urine pH 6.0 Ur Specific [place] 1.025 Urine Protein 30 Urine Glucose (UA) 150 Urine Ketones Trace Urine Blood Negative Urine Nitrate Positive H Urine Bilirubin Negative Urine Urobilinogen 4.0 Ur Leukocyte Esterase Neg Urine RBC (Auto) 4 H Urine Microscopic WBC 4 Ur Squamous Epith Cells < 1 Urine Bacteria Rare 06/18/18 05:30 WBC RBC Hgb Hct MCV MCH MCHC RDW Plt Count PT INR APTT Sodium 139 Potassium 3.8 Chloride 103 Carbon Dioxide 28 Anion Gap 12 BUN 11 Creatinine 0.7 L Est GFR ( Amer) > 60 Est GFR (Non-Af Amer) > 60 Random Glucose 99 Calcium 9.0 Total Bilirubin 0.8 AST 35 ALT 23 Alkaline Phosphatase 51 Total Protein 6.5 Albumin 3.6 Globulin 3.0 Albumin/Globulin Ratio 1.2 Urine Color Urine Clarity Urine pH Ur Specific [place] Urine Protein Urine Glucose (UA) Urine Ketones Urine Blood Urine Nitrate Urine Bilirubin Urine Urobilinogen Ur Leukocyte Esterase Urine RBC (Auto) Urine Microscopic WBC Ur Squamous Epith Cells Urine Bacteria Assessment & Plan (1) Status post total hip replacement, left Status: Acute (2) Primary osteoarthritis of left hip Status: Acute (3) Anemia Status: Acute (4) Dysuria Status: Acute - Assessment and Plan (Free Text) Plan: available diagnostic data reviewed monitor labs monitor vitals c/w therapy/rehab pyridium urine culture pending rest of plan as ordered
[2018-06-18 12:34] VITALS: BMI 25.2
--- NOTE | 2018-06-18 15:27 | CP.PCM.PN ---
Subjective - Date & Time of Evaluation Date of Evaluation: 06/18/18 Time of Evaluation: 13:00 - Subjective Subjective: patient with mild discomfort of left leg no acute pain Objective - Vital Signs/Intake and Output Vital Signs (last 24 hours): Temp Pulse Resp BP Pulse Ox 98.7 F 80 20 107/63 97 06/18/18 08:25 06/18/18 08:25 06/18/18 08:25 06/18/18 08:25 06/18/18 08:25 - Medications Medications: Current Medications Acetaminophen (Tylenol 325mg Tab) 650 mg PO Q4 PRN PRN Reason: Fever >100.4 F Acetaminophen (Tylenol 325mg Tab) 650 mg PO Q4 PRN PRN Reason: Pain, Mild (1-3) Aspirin (Aspirin) 325 mg PO BID [facility] Last Admin: 06/18/18 09:27 Dose: 325 mg Celecoxib (Celebrex) 100 mg PO Q12 [facility] Last Admin: 06/18/18 10:59 Dose: Not Given Diphenhydramine HCl (Benadryl) 50 mg IVP Q6 PRN PRN Reason: Itching / Pruritus Docusate Sodium (Colace) 100 mg PO TID [facility] Last Admin: 06/18/18 13:50 Dose: Not Given Famotidine (Pepcid) 20 mg PO BID [facility] Last Admin: 06/18/18 09:19 Dose: 20 mg Ondansetron HCl (Zofran Inj) 4 mg IVP Q6 PRN PRN Reason: Nausea/Vomiting Oxycodone HCl (Oxycontin Extended Release Tab) 10 mg PO Q12 [facility] Stop: 06/20/18 21:01 Last Admin: 06/18/18 09:27 Dose: 10 mg Oxycodone HCl (Oxycodone Immediate Release Tab) 5 mg PO Q4 PRN PRN Reason: Pain, severe (8-10) Phenazopyridine HCl (Pyridium) 100 mg PO TID [facility] Stop: 06/18/18 23:59 Last Admin: 06/18/18 12:43 Dose: 100 mg Temazepam (Restoril) 30 mg PO HS [facility] Last Admin: 06/17/18 22:04 Dose: 30 mg Tramadol HCl (Ultram) 50 mg PO Q4 PRN PRN Reason: Pain, moderate (4-7) - Labs Labs: 06/18/18 05:30 06/18/18 05:30 PT 12.7 Seconds (9.8-13.1) 06/18/18 05:30 INR 1.1 06/18/18 05:30 APTT 32.5 Seconds (25.6-37.1) 06/18/18 05:30 - Constitutional Appears: Well - Head Exam Head Exam: ATRAUMATIC, NORMAL INSPECTION, NORMOCEPHALIC - Eye Exam Eye Exam: EOMI, Normal appearance Pupil Exam: NORMAL ACCOMODATION, PERRL - ENT Exam ENT Exam: Mucous Membranes Moist, Normal Exam - Neck Exam Neck Exam: Normal Inspection - Respiratory Exam Respiratory Exam: Clear to Ausculation Bilateral, NORMAL BREATHING PATTERN - Cardiovascular Exam Cardiovascular Exam: REGULAR RHYTHM - GI/Abdominal Exam GI & Abdominal Exam: Normal Bowel Sounds - Rectal Exam Rectal Exam: NORMAL INSPECTION - Exam External exam: NORMAL EXTERNAL EXAM - Extremities Exam Extremities Exam: Normal Capillary Refill, Normal Inspection - Back Exam Back Exam: NORMAL INSPECTION - Neurological Exam Neurological Exam: Alert Neuro motor strength exam: Left Upper Extremity: 4, Right Upper Extremity: 4, Left Lower Extremity: 3, Right Lower Extremity: 4 - Psychiatric Exam Psychiatric exam: Normal Affect, Normal Mood - Skin Skin Exam: Normal Color Assessment and Plan (1) Primary osteoarthritis of left hip Status: Acute (2) Status post total hip replacement, left Assessment & Plan: plan for physical, occupational therapy for range of motion, strengthening , transfers and gait training. Monitor pain and skin. Goals for Dc home and for modified independent Status: Acute
[2018-06-19] MEDS: oxyCODONE 10 mg ER Tab (oxyCONTIN) PO SCH ×2 (08:55→21:45)
[2018-06-19 15:21] VITALS: RESP 20
[2018-06-20] MEDS: oxyCODONE 10 mg ER Tab (oxyCONTIN) PO SCH ×2 (09:41→20:31)
--- NOTE | 2018-06-20 11:56 | CP.PCM.PN ---
Subjective - Date & Time of Evaluation Date of Evaluation: 06/19/18 Time of Evaluation: 11:00 - Subjective Subjective: patient seen and examined at bedside. Interim events noted No complaints offered at this time, dysuria improved denies cp/sob/fever/chills. available diagnostic data reviewed Review of Systems All systems: reviewed and no additional remarkable complaints except mentioned above Objective Vital Signs Stable - Constitutional Appears: Non-toxic, No Acute Distress Head Exam: NORMAL INSPECTION Eye Exam: Normal appearance Respiratory Exam: NORMAL BREATHING PATTERN Cardiovascular Exam: +S1, +S2 GI & Abdominal Exam: Soft Neurological Exam: Alert, Awake Psychiatric exam: Normal Affect, Normal Mood Skin Exam: Normal Color, Warm Assessment and Plan monitor vitals monitor labs Cont meds Cont tx consultants appreciated input urine culture pending rest of plan as ordered Assessment and Plan (1) Status post total hip replacement, left Status: Acute (2) Primary osteoarthritis of left hip Status: Acute (3) Anemia Status: Acute (4) Dysuria Status: Resolved
--- NOTE | 2018-06-21 08:11 | CP.PCM.PN ---
Subjective - Date & Time of Evaluation Date of Evaluation: 06/21/18 Time of Evaluation: 08:09 - Subjective Subjective: Patient states that pain in hip is improving. He doesn't want to take any more narcotic pain medication. He is also refusing the celebrex, and has had some loose stools and refusing colace. Says burning with urination resolved. Patient did not sleep last night, and has been feeling increasing anxiety. He is not taking the klonopin that he takes at home. Objective - Vital Signs/Intake and Output Vital Signs (last 24 hours): Temp Pulse Resp BP Pulse Ox 99.0 F 81 20 120/68 97 06/21/18 07:55 06/21/18 07:55 06/21/18 07:55 06/21/18 07:55 06/21/18 07:55 - Medications Medications: Current Medications Acetaminophen (Tylenol 325mg Tab) 650 mg PO Q4 PRN PRN Reason: Fever >100.4 F Acetaminophen (Tylenol 325mg Tab) 650 mg PO Q4 PRN PRN Reason: Pain, Mild (1-3) Aspirin (Aspirin) 325 mg PO BID [facility] Last Admin: 06/20/18 17:50 Dose: 325 mg Diphenhydramine HCl (Benadryl) 50 mg IVP Q6 PRN PRN Reason: Itching / Pruritus Docusate Sodium (Colace) 100 mg PO TID [facility] Last Admin: 06/20/18 17:50 Dose: Not Given Famotidine (Pepcid) 20 mg PO BID [facility] Last Admin: 06/20/18 17:51 Dose: Not Given Ondansetron HCl (Zofran Inj) 4 mg IVP Q6 PRN PRN Reason: Nausea/Vomiting Oxycodone HCl (Oxycodone Immediate Release Tab) 5 mg PO Q4 PRN PRN Reason: Pain, severe (8-10) Phenazopyridine HCl (Pyridium) 100 mg PO TID PRN PRN Reason: for discomforts when urinating Temazepam (Restoril) 30 mg PO [facility] Last Admin: 06/20/18 21:25 Dose: 30 mg Tramadol HCl (Ultram) 50 mg PO Q4 PRN PRN Reason: Pain, moderate (4-7) - Labs Labs: 06/18/18 05:30 06/18/18 05:30 PT 12.7 Seconds (9.8-13.1) 06/18/18 05:30 INR 1.1 06/18/18 05:30 APTT 32.5 Seconds (25.6-37.1) 06/18/18 05:30 - Extremities Exam Additional comments: Left hip: dressing changed. +ROM ankle/toes, sensation intact, incisions dry, no erythema, healing well. Minimal swelling, mild ecchymosis to pin sites. calves soft NT neg homans Assessment and Plan (1) Status post total hip replacement, left Assessment & Plan: orthopedically stable d/c colace and celebrex, prn meds only per pt request consider resuming Klonopin, defer to medical team urine cx negative d/w Dr. Perry, agrees with above Status: Acute (2) Vitamin D deficiency Assessment & Plan: goal >40 with total joint replacement, supp ordered, recheck in 3 months Status: Acute
--- NOTE | 2018-06-21 08:28 | CP.PCM.PN ---
Subjective - Date & Time of Evaluation Date of Evaluation: 06/20/18 Time of Evaluation: 08:00 - Subjective Subjective: Pt seen and assessed at bedside. Reports an improvement in pain to the left hip, currently working with PT/OT. Of note, the pt reported dizziness while ambulating after receiving pain medication. Subjective Review of Systems: Reviewed and no additional remarkable complaints except mild pain to the left hip operative site. Objective Appears: Anxious, Non-toxic, No Acute Distress. Head Exam: NORMAL INSPECTION, normocephalic. Eye Exam: Normal eye inspection, EOMI, PERRLA. Respiratory Exam: NORMAL BREATHING PATTERN, breath sounds clear bilaterally. Cardiovascular Exam: +S1, +S2. RRR. GI & Abdominal Exam: Soft, non-tender, non-distended. Neurological Exam: Alert, Awake, Oriented x3. Psychiatric exam: Normal mood. Calm and cooperative. Musculoskeletal Exam: Mild Pain and tenderness to the left hip postoperatively. Skin Exam: Normal color, warm, dry. Assessment/Impression/Plan: 1.) Left total hip replacement -Left THR done by Dr. Perry. -Continue PT/OT. -monitor for fever. -Advised pt that he should avoid asking for pain medication immediately before PT sessions, due to associated vertigo. -Continue current tx. -Consults input appreciated. Objective - Vital Signs/Intake and Output Vital Signs (last 24 hours): Temp Pulse Resp BP Pulse Ox 99.0 F 81 20 120/68 97 06/21/18 07:55 06/21/18 07:55 06/21/18 07:55 06/21/18 07:55 06/21/18 07:55 - Medications Medications: Current Medications Acetaminophen (Tylenol 325mg Tab) 650 mg PO Q4 PRN PRN Reason: Fever >100.4 F Aspirin (Aspirin) 325 mg PO BID [facility] Last Admin: 06/20/18 17:50 Dose: 325 mg Calcium/Vitamin D (Oscal-D 250 Mg-125 Units Tab) 1 tab PO DAILY [facility] Cholecalciferol (Vitamin D) 2,000 intlu PO DAILY [facility] Diphenhydramine HCl (Benadryl) 50 mg IVP Q6 PRN PRN Reason: Itching / Pruritus Famotidine (Pepcid) 20 mg PO BID [facility] Last Admin: 06/20/18 17:51 Dose: Not Given Ketorolac Tromethamine (Toradol) 30 mg IVP Q6 PRN PRN Reason: Pain, Mild (1-3) Ondansetron HCl (Zofran Inj) 4 mg IVP Q6 PRN PRN Reason: Nausea/Vomiting Oxycodone HCl (Oxycodone Immediate Release Tab) 5 mg PO Q4 PRN PRN Reason: Pain, severe (8-10) Phenazopyridine HCl (Pyridium) 100 mg PO TID PRN PRN Reason: for discomforts when urinating Temazepam (Restoril) [address] [facility] Last Admin: 06/20/18 21:25 Dose: 30 mg Tramadol HCl (Ultram) 50 mg PO Q4 PRN PRN Reason: Pain, moderate (4-7) - Labs Labs: 06/18/18 05:30 06/18/18 05:30 PT 12.7 Seconds (9.8-13.1) 06/18/18 05:30 INR 1.1 06/18/18 05:30 APTT 32.5 Seconds (25.6-37.1) 06/18/18 05:30 Assessment and Plan (1) Status post total hip replacement, left Status: Acute
[2018-06-21] MEDS: Cholecalciferol 1,000 INTLU TAB PO SCH (11:04)
[2018-06-21] MEDS: Calcium-Vit D 250 mg-125 Units Tab UD PO SCH (11:04)
--- NOTE | 2018-06-22 01:18 | CP.PCM.PN ---
Subjective - Date & Time of Evaluation Date of Evaluation: 06/21/18 Time of Evaluation: 09:00 - Subjective Subjective: Pt seen and assessed at bedside. Reports an improvement in pain to the left hip, currently working with PT/OT. The pt reports worsening anxiety over the past 2 days; he takes Klonopin 2 mg daily at home. At this time, the pt reports not wanting to take pain meds due to side effects, including recent dizziness. Subjective Review of Systems: Reviewed and no additional remarkable complaints except mild pain to the left hip operative site. Objective Appears: Anxious, Non-toxic, No Acute Distress. Head Exam: NORMAL INSPECTION, normocephalic. Eye Exam: Normal eye inspection, EOMI, PERRLA. Respiratory Exam: NORMAL BREATHING PATTERN, breath sounds clear bilaterally. Cardiovascular Exam: +S1, +S2. RRR. GI & Abdominal Exam: Soft, non-tender, non-distended. Neurological Exam: Alert, Awake, Oriented x3. Psychiatric exam: Normal mood. Calm and cooperative. Musculoskeletal Exam: Mild Pain and tenderness to the left hip postoperatively. Skin Exam: Normal color, warm, dry. Assessment/Impression/Plan: 1.) Left total hip replacement -Left THR done by Dr. Perry. -Continue PT/OT. -Restarted Klonopin due to worsening anxiety. -Pain control PRN. -Monitor for leukocytosis and s/s infection. Objective - Vital Signs/Intake and Output Vital Signs (last 24 hours): Temp Pulse Resp BP Pulse Ox 99.1 F 77 20 129/74 98 06/21/18 19:23 06/21/18 19:23 06/21/18 19:23 06/21/18 19:23 06/21/18 19:23 - Medications Medications: Current Medications Acetaminophen (Tylenol 325mg Tab) 650 mg PO Q4 PRN PRN Reason: Fever >100.4 F Aspirin (Aspirin) 325 mg PO BID [facility] Last Admin: 06/21/18 17:47 Dose: 325 mg Calcium/Vitamin D (Oscal-D 250 Mg-125 Units Tab) 1 tab PO DAILY [facility] Last Admin: 06/21/18 11:04 Dose: 1 tab Cholecalciferol (Vitamin D) 2,000 intlu PO DAILY [facility] Last Admin: 06/21/18 11:04 Dose: 2,000 intlu Clonazepam (Klonopin) 2 mg PO DAILY PRN PRN Reason: Anxiety Last Admin: 06/21/18 13:21 Dose: 2 mg Diphenhydramine HCl (Benadryl) 50 mg IVP Q6 PRN PRN Reason: Itching / Pruritus Famotidine (Pepcid) 20 mg PO BID [facility] Last Admin: 06/21/18 17:50 Dose: Not Given Ketorolac Tromethamine (Toradol) 30 mg IVP Q6 PRN PRN Reason: Pain, Mild (1-3) Ondansetron HCl (Zofran Inj) 4 mg IVP Q6 PRN PRN Reason: Nausea/Vomiting Oxycodone HCl (Oxycodone Immediate Release Tab) 5 mg PO Q4 PRN PRN Reason: Pain, severe (8-10) Phenazopyridine HCl (Pyridium) 100 mg PO TID PRN PRN Reason: for discomforts when urinating Temazepam (Restoril) 30 mg PO [facility] Last Admin: 06/21/18 22:10 Dose: 30 mg Tramadol HCl (Ultram) 50 mg PO Q4 PRN PRN Reason: Pain, moderate (4-7) - Labs Labs: 06/18/18 05:30 06/18/18 05:30 PT 12.7 Seconds (9.8-13.1) 06/18/18 05:30 INR 1.1 06/18/18 05:30 APTT 32.5 Seconds (25.6-37.1) 06/18/18 05:30 Assessment and Plan (1) Status post total hip replacement, left Status: Acute
--- NOTE | 2018-06-22 01:20 | CP.PCM.PN ---
Subjective - Date & Time of Evaluation Date of Evaluation: 06/21/18 Time of Evaluation: 09:00 - Subjective Subjective: Pt seen and assessed at bedside. Reports an improvement in pain to the left hip, currently working with PT/OT. The pt reports worsening anxiety over the past 2 days; he takes Klonopin 2 mg daily at home. At this time, the pt reports not wanting to take pain meds due to side effects, including recent dizziness. Subjective Review of Systems: Reviewed and no additional remarkable complaints except mild pain to the left hip operative site. Objective Appears: Anxious, Non-toxic, No Acute Distress. Head Exam: NORMAL INSPECTION, normocephalic. Eye Exam: Normal eye inspection, EOMI, PERRLA. Respiratory Exam: NORMAL BREATHING PATTERN, breath sounds clear bilaterally. Cardiovascular Exam: +S1, +S2. RRR. GI & Abdominal Exam: Soft, non-tender, non-distended. Neurological Exam: Alert, Awake, Oriented x3. Psychiatric exam: Anxious appearance noted. Musculoskeletal Exam: Mild Pain and tenderness to the left hip postoperatively. Skin Exam: Normal color, warm, dry. Assessment/Impression/Plan: 1.) Left total hip replacement -Left THR done by Dr. Perry. -Continue PT/OT. -Restarted Klonopin due to worsening anxiety. -Pain control PRN. -Monitor for leukocytosis and s/s infection. Objective - Vital Signs/Intake and Output Vital Signs (last 24 hours): Temp Pulse Resp BP Pulse Ox 99.1 F 77 20 129/74 98 06/21/18 19:23 06/21/18 19:23 06/21/18 19:23 06/21/18 19:23 06/21/18 19:23 - Medications Medications: Current Medications Acetaminophen (Tylenol 325mg Tab) 650 mg PO Q4 PRN PRN Reason: Fever >100.4 F Aspirin (Aspirin) 325 mg PO BID [facility] Last Admin: 06/21/18 17:47 Dose: 325 mg Calcium/Vitamin D (Oscal-D 250 Mg-125 Units Tab) 1 tab PO DAILY [facility] Last Admin: 06/21/18 11:04 Dose: 1 tab Cholecalciferol (Vitamin D) 2,000 intlu PO DAILY [facility] Last Admin: 06/21/18 11:04 Dose: 2,000 intlu Clonazepam (Klonopin) 2 mg PO DAILY PRN PRN Reason: Anxiety Last Admin: 06/21/18 13:21 Dose: 2 mg Diphenhydramine HCl (Benadryl) 50 mg IVP Q6 PRN PRN Reason: Itching / Pruritus Famotidine (Pepcid) 20 mg PO BID [facility] Last Admin: 06/21/18 17:50 Dose: Not Given Ketorolac Tromethamine (Toradol) 30 mg IVP Q6 PRN PRN Reason: Pain, Mild (1-3) Ondansetron HCl (Zofran Inj) 4 mg IVP Q6 PRN PRN Reason: Nausea/Vomiting Oxycodone HCl (Oxycodone Immediate Release Tab) 5 mg PO Q4 PRN PRN Reason: Pain, severe (8-10) Phenazopyridine HCl (Pyridium) 100 mg PO TID PRN PRN Reason: for discomforts when urinating Temazepam (Restoril) 30 mg PO [facility] Last Admin: 06/21/18 22:10 Dose: 30 mg Tramadol HCl (Ultram) 50 mg PO Q4 PRN PRN Reason: Pain, moderate (4-7) - Labs Labs: 06/18/18 05:30 06/18/18 05:30 PT 12.7 Seconds (9.8-13.1) 06/18/18 05:30 INR 1.1 06/18/18 05:30 APTT 32.5 Seconds (25.6-37.1) 06/18/18 05:30 Assessment and Plan (1) Status post total hip replacement, left Status: Acute
[2018-06-22 06:44] LABS: BASO # 0.1 K/uL (0.0-0.2); BASO % 0.6 % (0.0-2.0); EOS % 0.5 % (0.0-4.0); HEMOGLOBIN 10.4 g/dL (12.0-18.0); LYMPH # 1.9 K/uL (1.0-4.3); LYMPH % 20.4 % (20.0-40.0); MEAN CELL VOLUME 91.6 fl (80.0-94.0); MEAN CORPUSCULAR HEMOGLOBIN 30.6 pg (27.0-31.0); MEAN CORPUSCULAR HGB CONC 33.4 g/dL (33.0-37.0); MEAN PLATELET VOLUME 7.9 fl (7.2-11.7); MONO # 0.6 K/uL (0.0-0.8); MONO % 6.3 % (0.0-10.0); NEUT # 6.6 K/uL (1.8-7.0); NEUT % 72.2 % (50.0-75.0); RBC 3.4 Mil/uL (4.40-5.90); RED CELL DISTRIBUTION WIDTH 13.6 % (11.5-14.5); WHITE BLOOD COUNT 9.2 K/uL (4.8-10.8)
[2018-06-22 07:04] LABS: ALB/GLOB RATIO 1.2 (1.0-2.1); ALT/SGPT 37 U/L (21-72); AST/SGOT 42 U/L (17-59); BLOOD UREA NITROGEN 13 mg/dl (9-20); CALCIUM 9.4 mg/dL (8.4-10.2); GFR NON-AFRICAN AMERICAN > 60
[2018-06-22] MEDS: Calcium-Vit D 250 mg-125 Units Tab UD PO SCH (09:57)
[2018-06-22] MEDS: Cholecalciferol 1,000 INTLU TAB PO SCH (09:58)
--- NOTE | 2018-06-22 12:01 | CP.PCM.CON ---
History of Present Illness - History of Present Illness History of Present Illness: consult requested for history of anxiety pt is a 57 years old male male with psychiatric history of anxiety and medical history of neuropathy and back pain admitted to [facility] recently due to s/p left total hip replacement with Dr. Perry. Patient now admitted to TCU for further rehabilitation. pt on evaluation reported one previous psychiatric hospitalization at [facility] for anxiety , patient currently following up with psychologist Dr Bharat Batista he sees weekly, patient stated at current time he feels anxious at times due to his medical condition, reported relieved by klonopin which has been prescribed to him by his PMD patient denied any current mood changes, denied changes in sleep or appetite denied perceptual disturbances, denied suicidal or homicidal ideation Past Patient History - Past Medical History & Family History Past Medical History?: Yes - Past Social History Smoking Status: Former Smoker - CARDIAC Hx Cardiac Disorders: No - PULMONARY Hx Respiratory Disorders: Yes Hx Asthma: Yes - NEUROLOGICAL Hx Neurological Disorder: No - HEENT Hx HEENT Problems: Yes Other/Comment: TROUBLE WITH NIGHT VISION - RENAL Hx Chronic Kidney Disease: Yes Other/Comment: RECURRING KIDNEY STONES - ENDOCRINE/METABOLIC Hx Endocrine Disorders: No - HEMATOLOGICAL/ONCOLOGICAL Hx Blood Disorders: No Hx Anemia: No Hx Blood Transfusions: No - INTEGUMENTARY Hx Dermatological Problems: No - MUSCULOSKELETAL/RHEUMATOLOGICAL Hx Musculoskeletal Disorders: Yes Hx Back Pain: Yes (DUE TO LEFT HIP PAIN) Hx Degenerative Joint Disease: Yes Hx Falls: No Hx Osteoarthritis: Yes Other/Comment: TINGLING SENSATION ON THE LEFT LEG DUE TO HIP PROBLEM - GASTROINTESTINAL Hx Gastrointestinal Disorders: No - GENITOURINARY/GYNECOLOGICAL Hx Genitourinary Disorders: No - PSYCHIATRIC Hx Emotional Abuse: No Hx Physical Abuse: No - SURGICAL HISTORY Hx Surgeries: Yes Other/Comment: RIGHT KNEE ARTHROSCOPY-1994 - ANESTHESIA Hx Anesthesia: Yes Hx Anesthesia Reactions: No Hx Malignant Hyperthermia: No Meds Allergies/Adverse Reactions: Allergies Allergy/AdvReac Type Severity Reaction Status Date / Time ciprofloxacin [From Cipro] Allergy RASH Verified 06/17/18 13:35 lactase [From Dairy Aid] Allergy DIARRHEA Verified 06/17/18 13:35 latex Allergy RASH Verified 06/17/18 13:35 - Medications Medications: Current Medications Acetaminophen (Tylenol 325mg Tab) 650 mg PO Q4 PRN PRN Reason: Fever >100.4 F Aspirin (Aspirin) 325 mg PO BID [facility] Last Admin: 06/22/18 09:57 Dose: 325 mg Calcium/Vitamin D (Oscal-D 250 Mg-125 Units Tab) 1 tab PO DAILY [facility] Last Admin: 06/22/18 09:57 Dose: 1 tab Cholecalciferol (Vitamin D) 2,000 intlu PO DAILY [facility] Last Admin: 06/22/18 09:58 Dose: 2,000 intlu Clonazepam (Klonopin) 2 mg PO DAILY PRN PRN Reason: Anxiety Last Admin: 06/21/18 13:21 Dose: 2 mg Diphenhydramine HCl (Benadryl) 50 mg IVP Q6 PRN PRN Reason: Itching / Pruritus Famotidine (Pepcid) 20 mg PO BID [facility] Last Admin: 06/22/18 09:57 Dose: Not Given Ketorolac Tromethamine (Toradol) 30 mg IVP Q6 PRN PRN Reason: Pain, Mild (1-3) Ondansetron HCl (Zofran Inj) 4 mg IVP Q6 PRN PRN Reason: Nausea/Vomiting Oxycodone HCl (Oxycodone Immediate Release Tab) 5 mg PO Q4 PRN PRN Reason: Pain, severe (8-10) Phenazopyridine HCl (Pyridium) 100 mg PO TID PRN PRN Reason: for discomforts when urinating Tramadol HCl (Ultram) 50 mg PO Q4 PRN PRN Reason: Pain, moderate (4-7) Physical Exam - Psychiatric Exam Additional comments: patient seen in bed calm cooperative, good eye contact speech normal reported mood anxious at times, affect appropriate to thought content , thought form coherent denied any current suicidal or homicidal ideation denied perceptual disturbances, alert awake oriented to person place and time Results - Vital Signs Recent Vital Signs: Last Vital Signs Temp 98.6 F 06/22/18 08:10 Pulse 77 06/22/18 08:10 Resp 20 06/22/18 08:10 BP 107/71 06/22/18 08:10 Pulse Ox 97 06/22/18 08:10 - Labs Result Diagrams: 06/22/18 06:20 06/22/18 06:20 Labs: Laboratory Results - last 24 hr 06/22/18 06/22/18 06:20 06:20 WBC 9.2 RBC 3.40 L Hgb 10.4 L Hct 31.1 L MCV 91.6 MCH 30.6 MCHC 33.4 RDW 13.6 Plt Count 436 H D MPV 7.9 Neut % (Auto) 72.2 Lymph % (Auto) 20.4 Coal % (Auto) 6.3 Eos % (Auto) 0.5 Baso % (Auto) 0.6 Neut # (Auto) 6.6 Lymph # (Auto) 1.9 Coal # (Auto) 0.6 Eos # (Auto) 0.0 Baso # (Auto) 0.1 Sodium 138 Potassium 4.5 Chloride 103 Carbon Dioxide 27 Anion Gap 13 BUN 13 Creatinine 0.6 L Est GFR ( Amer) > 60 Est GFR (Non-Af Amer) > 60 Random Glucose 103 Calcium 9.4 Total Bilirubin 0.6 AST 42 ALT 37 Alkaline Phosphatase 66 Total Protein 7.4 Albumin 4.0 Globulin 3.4 Albumin/Globulin Ratio 1.2 Assessment & Plan - Assessment and Plan (Free Text) Assessment: generalized anxiety disorder adjustment disorder with anxiety Plan: recommend to change current dose of klonopin from 2mg daily to 0.5mg tid prn for anxiety pt would benefit from referral to psychiatrist / outpatient services on discharge for possible management of anxiety with SSRI
--- NOTE | 2018-06-22 13:51 | CP.PCM.PN ---
Subjective - Date & Time of Evaluation Date of Evaluation: 06/22/18 Time of Evaluation: 11:00 - Subjective Subjective: patient with mild hip discomfort no pain Objective - Vital Signs/Intake and Output Vital Signs (last 24 hours): Temp Pulse Resp BP Pulse Ox 98.6 F 77 20 107/71 97 06/22/18 08:10 06/22/18 08:10 06/22/18 08:10 06/22/18 08:10 06/22/18 08:10 - Medications Medications: Current Medications Acetaminophen (Tylenol 325mg Tab) 650 mg PO Q4 PRN PRN Reason: Fever >100.4 F Aspirin (Aspirin) 325 mg PO BID [facility] Last Admin: 06/22/18 09:57 Dose: 325 mg Calcium/Vitamin D (Oscal-D 250 Mg-125 Units Tab) 1 tab PO DAILY [facility] Last Admin: 06/22/18 09:57 Dose: 1 tab Cholecalciferol (Vitamin D) 2,000 intlu PO DAILY [facility] Last Admin: 06/22/18 09:58 Dose: 2,000 intlu Clonazepam (Klonopin) 2 mg PO DAILY PRN PRN Reason: Anxiety Last Admin: 06/21/18 13:21 Dose: 2 mg Diphenhydramine HCl (Benadryl) 50 mg IVP Q6 PRN PRN Reason: Itching / Pruritus Famotidine (Pepcid) 20 mg PO BID [facility] Last Admin: 06/22/18 09:57 Dose: Not Given Ketorolac Tromethamine (Toradol) 30 mg IVP Q6 PRN PRN Reason: Pain, Mild (1-3) Ondansetron HCl (Zofran Inj) 4 mg IVP Q6 PRN PRN Reason: Nausea/Vomiting Oxycodone HCl (Oxycodone Immediate Release Tab) 5 mg PO Q4 PRN PRN Reason: Pain, severe (8-10) Phenazopyridine HCl (Pyridium) 100 mg PO TID PRN PRN Reason: for discomforts when urinating Tramadol HCl (Ultram) 50 mg PO Q4 PRN PRN Reason: Pain, moderate (4-7) - Labs Labs: 06/22/18 06:20 06/22/18 06:20 PT 12.7 Seconds (9.8-13.1) 04/20/19 05:30 INR 1.1 06/18/18 05:30 APTT 32.5 Seconds (25.6-37.1) 06/18/18 05:30 - Constitutional Appears: Well - Head Exam Head Exam: ATRAUMATIC, NORMAL INSPECTION, NORMOCEPHALIC - Eye Exam Eye Exam: EOMI, Normal appearance, PERRL Pupil Exam: NORMAL ACCOMODATION - ENT Exam ENT Exam: Mucous Membranes Moist, Normal Exam - Neck Exam Neck Exam: Full ROM, Normal Inspection - Respiratory Exam Respiratory Exam: Clear to Ausculation Bilateral, NORMAL BREATHING PATTERN - Cardiovascular Exam Cardiovascular Exam: REGULAR RHYTHM - GI/Abdominal Exam GI & Abdominal Exam: Soft, Normal Bowel Sounds - Rectal Exam Rectal Exam: NORMAL INSPECTION - Exam External exam: NORMAL EXTERNAL EXAM - Extremities Exam Extremities Exam: Full ROM, Normal Capillary Refill, Normal Inspection - Back Exam Back Exam: NORMAL INSPECTION - Neurological Exam Neurological Exam: Alert, Awake Neuro motor strength exam: Left Lower Extremity: 3 - Psychiatric Exam Psychiatric exam: Normal Affect, Normal Mood - Skin Skin Exam: Dry, Intact Assessment and Plan (1) Primary osteoarthritis of left hip Status: Acute (2) Status post total hip replacement, left Assessment & Plan: plan for range of motion, strengthening transfers, doing ADLs with dressing stick, wants to move to [place] in a trailer wants to discuss with psychiatric social worker supervisor Status: Acute
--- NOTE | 2018-06-22 13:55 | CP.PCM.PN ---
Subjective - Date & Time of Evaluation Date of Evaluation: 06/21/18 Time of Evaluation: 12:00 - Subjective Subjective: patient with issues with anxiety but no pain Objective - Vital Signs/Intake and Output Vital Signs (last 24 hours): Temp Pulse Resp BP Pulse Ox 98.6 F 77 20 107/71 97 06/22/18 08:10 06/22/18 08:10 06/22/18 08:10 06/22/18 08:10 06/22/18 08:10 - Medications Medications: Current Medications Acetaminophen (Tylenol 325mg Tab) 650 mg PO Q4 PRN PRN Reason: Fever >100.4 F Aspirin (Aspirin) 325 mg PO BID [facility] Last Admin: 06/22/18 09:57 Dose: 325 mg Calcium/Vitamin D (Oscal-D 250 Mg-125 Units Tab) 1 tab PO DAILY [facility] Last Admin: 06/22/18 09:57 Dose: 1 tab Cholecalciferol (Vitamin D) 2,000 intlu PO DAILY [facility] Last Admin: 06/22/18 09:58 Dose: 2,000 intlu Clonazepam (Klonopin) 2 mg PO DAILY PRN PRN Reason: Anxiety Last Admin: 06/21/18 13:21 Dose: 2 mg Diphenhydramine HCl (Benadryl) 50 mg IVP Q6 PRN PRN Reason: Itching / Pruritus Famotidine (Pepcid) 20 mg PO BID [facility] Last Admin: 06/22/18 09:57 Dose: Not Given Ketorolac Tromethamine (Toradol) 30 mg IVP Q6 PRN PRN Reason: Pain, Mild (1-3) Ondansetron HCl (Zofran Inj) 4 mg IVP Q6 PRN PRN Reason: Nausea/Vomiting Oxycodone HCl (Oxycodone Immediate Release Tab) 5 mg PO Q4 PRN PRN Reason: Pain, severe (8-10) Phenazopyridine HCl (Pyridium) 100 mg PO TID PRN PRN Reason: for discomforts when urinating Tramadol HCl (Ultram) 50 mg PO Q4 PRN PRN Reason: Pain, moderate (4-7) - Labs Labs: 06/22/18 06:20 06/22/18 06:20 PT 12.7 Seconds (9.8-13.1) 06/18/18 05:30 INR 1.1 04/20/19 05:30 APTT 32.5 Seconds (25.6-37.1) 06/18/18 05:30 - Constitutional Appears: Well - Head Exam Head Exam: ATRAUMATIC, NORMAL INSPECTION, NORMOCEPHALIC - Eye Exam Eye Exam: EOMI, Normal appearance, PERRL Pupil Exam: NORMAL ACCOMODATION - ENT Exam ENT Exam: Mucous Membranes Moist, Normal Exam - Neck Exam Neck Exam: Full ROM, Normal Inspection - Respiratory Exam Respiratory Exam: Clear to Ausculation Bilateral, NORMAL BREATHING PATTERN - Cardiovascular Exam Cardiovascular Exam: REGULAR RHYTHM - GI/Abdominal Exam GI & Abdominal Exam: Soft, Normal Bowel Sounds - Rectal Exam Rectal Exam: NORMAL INSPECTION - Exam External exam: NORMAL EXTERNAL EXAM - Extremities Exam Extremities Exam: Full ROM, Normal Capillary Refill, Normal Inspection - Back Exam Back Exam: NORMAL INSPECTION - Neurological Exam Neurological Exam: Alert, Awake Neuro motor strength exam: Left Lower Extremity: 3 - Psychiatric Exam Psychiatric exam: Normal Affect, Normal Mood - Skin Skin Exam: Dry Assessment and Plan (1) Primary osteoarthritis of left hip Status: Acute (2) Status post total hip replacement, left Assessment & Plan: monitor skin incisional area, psych for anxiety, Pt, Ot rec therapy Status: Acute
--- NOTE | 2018-06-23 02:17 | CP.PCM.PN ---
Subjective - Date & Time of Evaluation Date of Evaluation: 06/22/18 Time of Evaluation: 11:00 - Subjective Subjective: Pt seen and assessed at bedside. Reports improvement in both pain and anxiety since Klonopin was restarted. Pt continuing to work with PT/OT. Subjective Review of Systems: Reviewed and no additional remarkable complaints except mild pain to the left hip operative site. Objective Appears: Anxious, Non-toxic, No Acute Distress. Head Exam: NORMAL INSPECTION, normocephalic. Eye Exam: Normal eye inspection, EOMI, PERRLA. Respiratory Exam: NORMAL BREATHING PATTERN, breath sounds clear bilaterally. Cardiovascular Exam: +S1, +S2. RRR. GI & Abdominal Exam: Soft, non-tender, non-distended. Neurological Exam: Alert, Awake, Oriented x3. Psychiatric exam: Calm and cooperative at this time. Musculoskeletal Exam: Mild Pain and tenderness to the left hip postoperatively. Skin Exam: Normal color, warm, dry. Assessment/Impression/Plan: 1.) Left total hip replacement -Left THR done by Dr. Perry. -Continue PT/OT. -Reports improvement in anxiety since resuming Klonopin. -Arrange for discharge planning, as pt is concerned due to housing situation being unclear. Objective - Vital Signs/Intake and Output Vital Signs (last 24 hours): Temp Pulse Resp BP Pulse Ox 98.4 F 87 20 122/70 98 06/22/18 19:48 06/22/18 19:48 06/22/18 19:48 06/22/18 19:48 06/22/18 19:48 - Medications Medications: Current Medications Acetaminophen (Tylenol 325mg Tab) 650 mg PO Q4 PRN PRN Reason: Fever >100.4 F Aspirin (Aspirin) 325 mg PO BID [facility] Last Admin: 06/22/18 16:49 Dose: 325 mg Calcium/Vitamin D (Oscal-D 250 Mg-125 Units Tab) 1 tab PO DAILY [facility] Last Admin: 06/22/18 09:57 Dose: 1 tab Cholecalciferol (Vitamin D) 2,000 intlu PO DAILY [facility] Last Admin: 06/22/18 09:58 Dose: 2,000 intlu Clonazepam (Klonopin) 2 mg PO BID PRN PRN Reason: Anxiety Last Admin: 06/22/18 20:57 Dose: 2 mg Diphenhydramine HCl (Benadryl) 50 mg IVP Q6 PRN PRN Reason: Itching / Pruritus Famotidine (Pepcid) 20 mg PO BID [facility] Last Admin: 06/22/18 16:49 Dose: Not Given Ketorolac Tromethamine (Toradol) 30 mg IVP Q6 PRN PRN Reason: Pain, Mild (1-3) Ondansetron HCl (Zofran Inj) 4 mg IVP Q6 PRN PRN Reason: Nausea/Vomiting Oxycodone HCl (Oxycodone Immediate Release Tab) 5 mg PO Q4 PRN PRN Reason: Pain, severe (8-10) Phenazopyridine HCl (Pyridium) 100 mg PO TID PRN PRN Reason: for discomforts when urinating Temazepam (Restoril) 30 mg PO HS PRN PRN Reason: Insomnia Last Admin: 06/22/18 21:27 Dose: 30 mg Tramadol HCl (Ultram) 50 mg PO Q4 PRN PRN Reason: Pain, moderate (4-7) - Labs Labs: 06/22/18 06:20 06/22/18 06:20 PT 12.7 Seconds (9.8-13.1) 06/18/18 05:30 INR 1.1 06/18/18 05:30 APTT 32.5 Seconds (25.6-37.1) 06/18/18 05:30 Assessment and Plan (1) Status post total hip replacement, left Status: Acute
[2018-06-23] MEDS: Cholecalciferol 1,000 INTLU TAB PO SCH (09:03)
[2018-06-23] MEDS: Calcium-Vit D 250 mg-125 Units Tab UD PO SCH (09:45)
[2018-06-24] MEDS: Calcium-Vit D 250 mg-125 Units Tab UD PO SCH (08:34)
--- NOTE | 2018-06-24 08:54 | CP.PCM.PN ---
Subjective - Date & Time of Evaluation Date of Evaluation: 06/24/18 Time of Evaluation: 08:52 - Subjective Subjective: Patient states he is ready to go home. No new complaints of hip pain. Tolerating PT well. Objective - Vital Signs/Intake and Output Vital Signs (last 24 hours): Temp Pulse Resp BP Pulse Ox 98.4 F 75 20 104/67 97 06/24/18 08:12 06/24/18 08:12 06/24/18 08:12 06/24/18 08:12 06/24/18 08:12 - Medications Medications: Current Medications Acetaminophen (Tylenol 325mg Tab) 650 mg PO Q4 PRN PRN Reason: Fever >100.4 F Aspirin (Aspirin) 325 mg PO BID [facility] Last Admin: 06/23/18 17:11 Dose: 325 mg Calcium/Vitamin D (Oscal-D 250 Mg-125 Units Tab) 1 tab PO DAILY [facility] Last Admin: 06/24/18 08:34 Dose: 1 tab Cholecalciferol (Vitamin D) 2,000 intlu PO DAILY [facility] Last Admin: 06/23/18 09:03 Dose: 2,000 intlu Clonazepam (Klonopin) 0.5 mg PO TID PRN PRN Reason: Anxiety Last Admin: 06/24/18 08:33 Dose: 0.5 mg Diphenhydramine HCl (Benadryl) 50 mg IVP Q6 PRN PRN Reason: Itching / Pruritus Famotidine (Pepcid) 20 mg PO BID [facility] Last Admin: 06/24/18 08:34 Dose: Not Given Ketorolac Tromethamine (Toradol) 30 mg IVP Q6 PRN PRN Reason: Pain, Mild (1-3) Ondansetron HCl (Zofran Inj) 4 mg IVP Q6 PRN PRN Reason: Nausea/Vomiting Oxycodone HCl (Oxycodone Immediate Release Tab) 5 mg PO Q4 PRN PRN Reason: Pain, severe (8-10) Phenazopyridine HCl (Pyridium) 100 mg PO TID PRN PRN Reason: for discomforts when urinating Temazepam (Restoril) 30 mg PO HS PRN PRN Reason: Insomnia Last Admin: 06/23/18 21:38 Dose: 30 mg Tramadol HCl (Ultram) 50 mg PO Q4 PRN PRN Reason: Pain, moderate (4-7) - Labs Labs: 06/22/18 06:20 06/22/18 06:20 PT 12.7 Seconds (9.8-13.1) 06/18/18 05:30 INR 1.1 06/18/18 05:30 APTT 32.5 Seconds (25.6-37.1) 06/18/18 05:30 - Extremities Exam Additional comments: Left hip: incision intact, dry, no erythema, swelling improved. +ROM ankle/toes, sensation intact +DP/PT pulses calves soft NT neghomans Assessment and Plan (1) Status post total hip replacement, left Assessment & Plan: POD#9 s/p L THR orthopedically stable cont aspirin 325mg PO BID at home keep incision clean/dry f/u Dr. Perry as per appt d/w Dr. Perry, agrees with above Status: Acute (2) Vitamin D deficiency Assessment & Plan: cont supp Status: Acute
[2018-06-24] MEDS: Cholecalciferol 1,000 INTLU TAB PO SCH (09:43)
--- NOTE | 2018-06-24 14:07 | CP.PCM.PN ---
Subjective - Date & Time of Evaluation Date of Evaluation: 06/24/18 Time of Evaluation: 09:00 - Subjective Subjective: no acute leg discomfort Objective - Vital Signs/Intake and Output Vital Signs (last 24 hours): Temp Pulse Resp BP Pulse Ox 98.4 F 75 20 104/67 97 06/24/18 08:12 06/24/18 08:12 06/24/18 08:12 06/24/18 08:12 06/24/18 08:12 - Medications Medications: Current Medications Acetaminophen (Tylenol 325mg Tab) 650 mg PO Q4 PRN PRN Reason: Fever >100.4 F Aspirin (Aspirin) 325 mg PO BID [facility] Last Admin: 06/24/18 09:44 Dose: 325 mg Calcium/Vitamin D (Oscal-D 250 Mg-125 Units Tab) 1 tab PO DAILY [facility] Last Admin: 06/24/18 08:34 Dose: 1 tab Cholecalciferol (Vitamin D) 2,000 intlu PO DAILY [facility] Last Admin: 06/24/18 09:43 Dose: 2,000 intlu Clonazepam (Klonopin) 2 mg PO BID PRN PRN Reason: Anxiety Diphenhydramine HCl (Benadryl) 50 mg IVP Q6 PRN PRN Reason: Itching / Pruritus Famotidine (Pepcid) 20 mg PO BID [facility] Last Admin: 06/24/18 08:34 Dose: Not Given Ketorolac Tromethamine (Toradol) 30 mg IVP Q6 PRN PRN Reason: Pain, Mild (1-3) Ondansetron HCl (Zofran Inj) 4 mg IVP Q6 PRN PRN Reason: Nausea/Vomiting Oxycodone HCl (Oxycodone Immediate Release Tab) 5 mg PO Q4 PRN PRN Reason: Pain, severe (8-10) Phenazopyridine HCl (Pyridium) 100 mg PO TID PRN PRN Reason: for discomforts when urinating Temazepam (Restoril) 30 mg PO HS PRN PRN Reason: Insomnia Last Admin: 06/23/18 21:38 Dose: 30 mg Tramadol HCl (Ultram) 50 mg PO Q4 PRN PRN Reason: Pain, moderate (4-7) - Labs Labs: 06/22/18 06:20 06/22/18 06:20 PT 12.7 Seconds (9.8-13.1) 06/18/18 05:30 INR 1.1 06/18/18 05:30 APTT 32.5 Seconds (25.6-37.1) 06/18/18 05:30 - Constitutional Appears: Well - Head Exam Head Exam: ATRAUMATIC, NORMAL INSPECTION, NORMOCEPHALIC - Eye Exam Eye Exam: EOMI, Normal appearance, PERRL Pupil Exam: NORMAL ACCOMODATION - ENT Exam ENT Exam: Mucous Membranes Moist, Normal Exam - Neck Exam Neck Exam: Full ROM, Normal Inspection - Respiratory Exam Respiratory Exam: Clear to Ausculation Bilateral, NORMAL BREATHING PATTERN - Cardiovascular Exam Cardiovascular Exam: REGULAR RHYTHM - GI/Abdominal Exam GI & Abdominal Exam: Soft, Normal Bowel Sounds - Rectal Exam Rectal Exam: NORMAL INSPECTION - Exam External exam: NORMAL EXTERNAL EXAM - Extremities Exam Extremities Exam: Full ROM, Normal Capillary Refill, Normal Inspection - Back Exam Back Exam: NORMAL INSPECTION - Neurological Exam Neurological Exam: Alert, Awake Neuro motor strength exam: Left Lower Extremity: 3 - Psychiatric Exam Psychiatric exam: Normal Affect, Normal Mood - Skin Skin Exam: Dry, Intact Assessment and Plan (1) Primary osteoarthritis of left hip Status: Acute (2) Status post total hip replacement, left Assessment & Plan: status post physical, occupational therapy, plan for discharge plan with supportive services Status: Acute
[2018-06-25 08:02] VITALS: BP 105/57; PULSE 81; TEMP 98.2; O2SAT 98
[2018-06-25] MEDS: Cholecalciferol 1,000 INTLU TAB PO SCH (09:26)
[2018-06-25] MEDS: Calcium-Vit D 250 mg-125 Units Tab UD PO SCH (09:26)
== END 2018-06-25 15:50 | disposition home health service (06) | DRG 561 ==
LOC: H.TCU 13:39
PROVIDERS: ADMIT Family Medicine; ATTEND Family Medicine
PROC: F07Z9FZ Gait Training/Functional Ambulation Treatment using Assistive, Adaptive, Supportive or Protective Equipment (ICD-10-PCS; principal; 2018-06-17)
PROC: F07M6FZ Therapeutic Exercise Treatment of Musculoskeletal System - Whole Body using Assistive, Adaptive, Supportive or Protective Equipment (ICD-10-PCS; 2018-06-17)
PROC: F08Z4FZ Home Management Treatment using Assistive, Adaptive, Supportive or Protective Equipment (ICD-10-PCS; 2018-06-17)
DX: Z47.1 Aftercare following joint replacement surgery (principal); Z96.642 Presence of left artificial hip joint; G62.9 Polyneuropathy, unspecified; M19.90 Unspecified osteoarthritis, unspecified site; M54.9 Dorsalgia, unspecified; R30.0 Dysuria; D64.9 Anemia, unspecified; E55.9 Vitamin D deficiency, unspecified; F41.1 Generalized anxiety disorder; F43.22 Adjustment disorder with anxiety; J45.909 Unspecified asthma, uncomplicated; M16.12 Unilateral primary osteoarthritis, left hip; N18.9 Chronic kidney disease, unspecified; Z79.82 Long term (current) use of aspirin; Z87.442 Personal history of urinary calculi; Z87.891 Personal history of nicotine dependence